=== PATIENT | female | born 1940 | race Caucasian/White ===

== ENCOUNTER → 2020-11-10 12:40 | Outpatient (BNVA) | payer MEDICARE, SELFPAY | PROVIDERS: PCP Family Medicine; Visit Provider Surgery Vascular Surgery | DX: I73.9 Peripheral vascular disease, unspecified (principal); I10 Essential (primary) hypertension; I83.218 Varicose veins of right lower extremity with both ulcer of other part of lower extremity and inflammation; I83.228 Varicose veins of left lower extremity with both ulcer of other part of lower extremity and inflammation; L97.529 Non-pressure chronic ulcer of other part of left foot with unspecified severity | CPT/HCPCS: 99202 ==

== ENCOUNTER 2020-11-18 15:02 | Outpatient (REF) | payer MEDICARE, SELFPAY ==
--- NOTE | ~2020-11-18 | US_ITS ---
EXAMINATION: NONINVASIVE ASSESSMENT OF THE ARTERIES OF BOTH LOWER EXTREMITIES WITH ANKLE PRESSURE MEASUREMENTS, ANKLE BRACHIAL INDICES, PVR MEASUREMENTS AND BILATERAL LOWER EXTREMITY DUPLEX. CLINICAL INFORMATION: Peripheral vascular disease TECHNIQUE: Ankle pressure measurements, ankle brachial indices and PVR tracings were obtained of the lower extremity arterial system bilaterally. In addition, duplex Doppler techniques with wave form analysis and measurement of velocities in the common femoral, profunda femoral, superficial femoral, popliteal, tibial arteries and peroneal arteries was performed. The study was performed only at rest. COMPARISON: None FINDINGS: NONINVASIVE ASSESSMENT OF THE ARTERIES OF BOTH LOWER EXTREMITIES WITH ABIs: RIGHT LEG: Right ankle-brachial index: 1.23 (dorsalis pedis pulse not audible by Doppler) PVR (ankle): Irregular waveform LEFT LEG: Ankle-brachial index: Unable to be obtained as pedal pulses were not audible by Doppler. PVR (ankle): Irregular waveform RIGHT LEG: Common femoral artery: 90.5 cm/s, biphasic Profunda femoris artery: 68 cm/s, Triphasic Superficial femoral artery (proximal): 60.1 cm/s, biphasic Superficial femoral artery (mid): 93.3 cm/s, biphasic Superficial femoral artery (distal): 68 cm/s, biphasic Popliteal artery: 51 cm/s, Triphasic Posterior tibial artery: 29.7 cm/s, monophasic Peroneal artery: 29.9 cm/s, monophasic LEFT LEG: Common femoral artery: 70.6 cm/s, Triphasic Profunda femoris artery: 60.4 cm/s, Triphasic Superficial femoral artery (proximal): 61.5 cm/s, biphasic Superficial femoral artery (mid): 63.3 cm/s, monophasic Superficial femoral artery (distal): 54.3 cm/s, monophasic Popliteal artery: 61.3 cm/s, monophasic Posterior tibial artery: 45.2 cm/s, monophasic Peroneal artery: Occluded US/US arterial duplex LE BI IMPRESSION: Right: AGUSTIN 1.23. No evidence of hemodynamically significant stenosis involving the right lower extremity by Doppler criteria. Left: AGUSTIN unable to be obtained. No evidence of hemodynamically significant stenosis involving the left lower extremity. No Doppler signal within the left peroneal artery consistent with occlusion.
== END 2020-11-18 15:03 | disposition home or self-care (01) ==
LOC: HO.US 15:02
PROVIDERS: Visit Provider Surgery Vascular Surgery
DX: I70.213 Atherosclerosis of native arteries of extremities with intermittent claudication, bilateral legs (principal)
CPT/HCPCS: 93925

== ENCOUNTER → 2020-11-22 10:40 | Outpatient (BNVA) | payer MEDICARE, SELFPAY | PROVIDERS: PCP Family Medicine; Visit Provider Surgery Vascular Surgery | DX: I73.9 Peripheral vascular disease, unspecified (principal) | CPT/HCPCS: 99212 ==

== ENCOUNTER → 2020-11-23 07:44 | Day surgery (SDC) | payer MEDICARE, MEDICAID, SELFPAY ==
[2020-11-23] VITALS (9 sets, daily range): BP systolic 127–163; BP diastolic 54–90; PULSE 75–92; RESP 16–24; TEMP 36.6; O2SAT 95–98; BMI 29.9
[2020-11-23] MEDS: 0.9 % Sodium Chloride 1,000 ML 100 ML IVCONT (08:29)
[2020-11-23 08:52] LABS: MANUAL DIFF FLAG NO
[2020-11-23 08:56] LABS: Basophils Absolute Auto 0.1 X10*3/uL (0.0-0.2); Basophils Percent Auto 0.5 % (0-2); Eosinophils Absolute Auto 0.3 X10*3/uL (0.0-0.4); Hemoglobin 11.8 g/dl (12.0-16.0); Imm Gran Abs Auto 0.05 X10*3/uL (0.00-0.03); Imm Gran Pct Auto 0.5 % (0.0-0.4); Lymphocytes Absolute Auto 1.6 X10*3/uL (1.2-4.9); Mean Corpuscular HGB Conc 31.9 g/dl (31.0-35.0); Mean Corpuscular Hemoglobin 31.1 pg (27.0-33.0); Mean Corpuscular Volume 97.4 fL (80-98); Mean Platelet Volume 9.9 fL (9.4-12.3); Monocytes Absolute Auto 0.9 X10*3/uL (0.1-1.2); Monocytes Percent Auto 8.9 % (2-11); Neutrophils Absolute Auto 6.7 X10*3/uL (2.0-8.3); Neutrophils Percent Auto 70.1 % (45-73); Platelet Count 292 X10*3/uL (160-400); Red Cell Distribution Width 15.8 % (11.0-16.0); White Blood Count 9.6 X10*3/uL (4.8-10.8)
[2020-11-23 08:59] LABS: Prothrombin Time 11.3 SEC (9.9-13.0)
[2020-11-23 09:26] LABS: Anion Gap 14 (12-20); Blood Urea Nitrogen 32 mg/dL (9-16); Calcium 9.1 mg/dL (8.4-10.2); Carbon Dioxide 24 mmol/L (22-29); Chloride 107 mmol/L (96-108); Estimated Glomerular Filt Rate 53; Glucose Random 99 mg/dL (60-115); Sodium 140 mmol/L (135-145)
--- NOTE | 2020-11-23 12:04 | P.OP_ITS ---
Operative Note Operative Note Date of Service: 11/23/20 Narrative: Angiogram report from [facility] Preoperative diagnosis: Atherosclerosis of left lower extremity with nonhealing ulcer Postoperative diagnosis: Same Procedure: 1. Ultrasound-guided right common femoral access 2. Aortogram with left lower extremity runoff 3. Atherectomy and stent placement of left SFA Surgeon:Shan Hunt M.D. Pyrotechnics Press Tender:None Anesthesia: Local with moderate conscious sedation for a total of 60 minutes, performed by pa Specimens:none Drains:none Estimated blood loss: Less than 10 ml Indications: 80-year-old female with nonhealing left great toe ulcer and heel ulceration had noninvasive arterial testing demonstrated significant SFA disease now for endovascular intervention The patient has signed the informed consent after reviewing risks, complications, benefits, and alternatives previously discussed with the patient in my office. The patient was given the opportunity to ask any additional questions or voice any concerns. All questions were answered to the patient's satisfaction. Procedure in detail: Patient was brought to the angiography suite prior to which a time-out was called for patient identification and site verification. Bilateral groins were prepped and draped in the standard surgical fashion. Under ultrasound guidance right common femoral was punctured with micro puncture needle and wire. Subsequently a precision 4 [place] sheath was then placed. FlexyMind wire was advanced to the level of the aorta. 4 [place] Flush catheter was brought up and parked at the level of the renal arteries. Aortogram was then undertaken. Catheter was brought down to the level of the iliac bifurcation. Iliacs were subsequently imaged. Catheter was then brought in up and over to the left side SFA. Runoff study was then undertaken. It was discovered that the mid to distal SFA had significant occlusive disease. At this time 4000 units of systemic heparin was administered. After 5 minutes of circulation time up and over 6 [place] sheath was then placed. Glidewire Advantage was used to traverse this lesion. This was done with a now B Cross catheter. We confirmed true lumen with contrast. Once this was accomplished we then brought in a spider wire. Hawk 1 atherectomy device was then used to atherectomy my as the distal SFA proximal popliteal and a lesion that was near Meliton's canal. Multiple unidirectional passes is was undertaken. Once this was done there was still some residual stenosis at the distal SFA and we were able to plasty this with a 6 x 40 regular balloon. Then a 6 x 40 drug coated balloon was brought into position and under 3 minutes and plasty for a total of 3 minutes in duration. Once this was all done there was some extravasation of contrast noted. A 6 x 20 regular stent was then placed. Extravasation resolved. Catheter wire sheath was then brought back to the ipsilateral side. StarClose closure device was deployed. Patient tolerated the procedure well returned to recovery with stable vitals. Interpretation of films: 1. Ultrasound demonstrates appropriate femoral puncture. Image of which was saved. 2. Aortogram demonstrates appropriate caliber aorta. Minimal disease. Appropriate take-off of the renals. 3. Iliac images demonstrate significant tortuosity of iliacs 4. Left side demonstrated good flow through the profunda 9 common femoral mid to distal SFA had a small total occlusion distal SFA proximal popliteal had a 2nd total occlusion. Below-knee vessels anterior tibial and peroneal where the main runoffs posterior tibial was totally occluded. 5. Completion angiogram demonstrated excellent flow through the SFA down into the popliteal anterior tibial and peroneal arteries. Conclusion: 1. Successful atherectomy and stent placement of left distal SFA. Due to the use of a drug coated balloon as well a total of 6 months of aspirin and Plavix will be required. This note is constructed using voice recognition software. While every effort has been made to ensure accuracy, meter shop superintendent errors may have been included. Thank you for allowing me to participate in the care of your patient. Yours sincerely, Shan Hunt MD, FACS, R.P.V.I.
[2020-11-23] MEDS: Clopidogrel Bisulfate 300 MG TABLET PO (12:14)
[2020-11-23] MEDS: iohexoL 300 MG/ML 100 ML INFUS..BTL 200 ML IV (12:31)
== END | disposition home or self-care (01) ==
PROVIDERS: PCP Nurse Practitioner Family; Visit Provider Surgery Vascular Surgery
DX: I70.244 Atherosclerosis of native arteries of left leg with ulceration of heel and midfoot (principal); L97.429 Non-pressure chronic ulcer of left heel and midfoot with unspecified severity; I70.245 Atherosclerosis of native arteries of left leg with ulceration of other part of foot; L97.529 Non-pressure chronic ulcer of other part of left foot with unspecified severity
CPT/HCPCS: 36415; 37227; 76937; 80048; 85025; 85610; 85730; 99152; 99153; C1714; C1725; C1760; C1769; C1876; C1884; C1887; J2250; J3010; Q9967

== ENCOUNTER → 2020-12-08 10:54 | Outpatient (BNVA) | payer MEDICARE, MEDICAID, SELFPAY | PROVIDERS: PCP Nurse Practitioner Family; Visit Provider Surgery Vascular Surgery | DX: I73.9 Peripheral vascular disease, unspecified (principal) | CPT/HCPCS: 99212 ==

== ENCOUNTER → 2020-12-22 11:00 | Outpatient (BNVA) | payer MEDICARE, MEDICAID, SELFPAY | PROVIDERS: PCP Nurse Practitioner Family; Visit Provider Surgery Vascular Surgery | DX: I73.9 Peripheral vascular disease, unspecified (principal); L97.529 Non-pressure chronic ulcer of other part of left foot with unspecified severity | CPT/HCPCS: 99212 ==

== ENCOUNTER → 2021-01-24 10:18 | Outpatient (BNVA) | payer MEDICARE, MEDICAID, SELFPAY | PROVIDERS: PCP Nurse Practitioner Family; Referring Provider Nurse Practitioner Family; Visit Provider Surgery Vascular Surgery | DX: I73.9 Peripheral vascular disease, unspecified (principal); I83.10 Varicose veins of unspecified lower extremity with inflammation | CPT/HCPCS: 99212 ==

== ENCOUNTER 2021-02-09 13:42 | Outpatient (REF) | payer MEDICARE, MEDICAID, SELFPAY ==
--- NOTE | ~2021-02-09 | US_ITS ---
EXAMINATION: NON-INVASIVE ASSESSMENT OF THE ARTERIES OF BOTH LOWER EXTREMITIES WITH ANKLE PRESSURE MEASUREMENTS, ANKLE BRACHIAL INDICES, PVR MEASUREMENTS AND BILATERAL LOWER EXTREMITY DUPLEX. CLINICAL INFORMATION: Peripheral vascular disease. TECHNIQUE: Ankle pressure measurements, ankle brachial indices and PVR tracings were obtained of the lower extremity arterial system bilaterally. In addition, duplex Doppler techniques with wave form analysis and measurement of velocities in the common femoral, profunda femoral, superficial femoral, popliteal and tibial arteries was performed. The study was performed only at rest. COMPARISON: November 18, 2020. FINDINGS: NON-INVASIVE ASSESSMENT OF THE ARTERIES OF BOTH LOWER EXTREMITIES WITH ABIs: RIGHT LEG: Right ankle-brachial index: 1.26 Pressures (mmHg): Posterior tibial: 206 Dorsalis pedis 204 PVR (ankle): Dampened LEFT LEG: Ankle-brachial index: 1.23 Pressures (mmHg) Posterior tibial: 201 Dorsalis pedis 201 PVR (ankle): Dampened BILATERAL LOWER EXTREMITY DUPLEX ULTRASOUND: RIGHT LEG: Common femoral artery: 99 cm/s, Diastolic flow reversal: Yes Profunda femoris artery: 89 cm/s, Diastolic flow reversal: Yes Superficial femoral artery (proximal): 92 cm/s, Diastolic flow reversal: Yes Superficial femoral artery (mid): 83 cm/s, Diastolic flow reversal: Yes Superficial femoral artery (distal): 93 cm/s, Diastolic flow reversal: Yes Popliteal artery: 38 cm/s, Diastolic flow reversal: Yes Posterior tibial artery: 45 cm/s, Diastolic flow reversal: Yes Peroneal artery: 44.3 cm/s LEFT LEG: Common femoral artery: 86 cm/s, Diastolic flow reversal: Yes Profunda femoris artery: 99 cm/s, Diastolic flow reversal: Yes Superficial femoral artery (proximal): 107 cm/s, Diastolic flow reversal: Yes Superficial femoral artery (mid): 94 cm/s, Diastolic flow reversal: Yes Superficial femoral artery (distal): 99 cm/s, Diastolic flow reversal: Yes Popliteal artery: 75 cm/s, Diastolic flow reversal: Yes Posterior tibial artery: 12 cm/s, Diastolic flow reversal: Yes Peroneal artery: Occluded US/US arterial duplex LE BI IMPRESSION: RIGHT LEG: AGUSTIN 1.26. No evidence of hemodynamically significant outflow stenosis on duplex examination. LEFT LEG: AGUSTIN 1.23. No evidence of hemodynamically significant outflow stenosis on duplex examination. Persistent occlusion of the left peroneal artery. AGUSTIN Reference: - >0.97-1.25 = normal - no significant arterial disease - 0.75-0.96 = mild peripheral arterial disease - 0.5-0.74 = moderate peripheral arterial disease - <0.50 = severe peripheral arterial disease
== END 2021-02-09 13:43 | disposition home or self-care (01) ==
LOC: HO.US 13:42
PROVIDERS: PCP Nurse Practitioner Family; Visit Provider Surgery Vascular Surgery
DX: I73.9 Peripheral vascular disease, unspecified (principal)
CPT/HCPCS: 93925

== ENCOUNTER → 2021-02-23 11:02 | Outpatient (BNVA) | payer MEDICARE, MEDICAID, SELFPAY | PROVIDERS: PCP Nurse Practitioner Family; Visit Provider Surgery Vascular Surgery | DX: I73.9 Peripheral vascular disease, unspecified (principal) | CPT/HCPCS: 99212 ==

== ENCOUNTER 2021-08-22 12:00 | Outpatient (REF) | payer MEDICARE, MEDICAID, SELFPAY ==
--- NOTE | ~2021-08-22 | US_ITS ---
EXAMINATION: COLOR-FLOW DUPLEX IMAGING OF THE BILATERAL LOWER EXTREMITY ARTERIAL SYSTEM. VELOCITY MEASUREMENTS THROUGHOUT THE FEMORAL ARTERIES WITH ANKLE-BRACHIAL PERIPHERAL ARTERIAL TESTING. Interventional Radiologist: Juan Pablo Oneal M.D., F.S.I.R., F.A.C.R. CLINICAL INFORMATION: This is an 81-year-old female with peripheral arterial disease. History of angioplasty and stent on the left. RIGHT FEMORAL RUNOFF VELOCITIES: The right common femoral artery measures 99 cm/s and triphasic. The right profunda femoral artery is 77 cm/s and is biphasic. Right proximal superficial femoral artery measures 160 cm/s and triphasic. Mid superficial femoral artery is 90 cm/s and triphasic. Distal right superficial femoral artery measures 60 cm/s and is biphasic. Right popliteal velocity measures 79 cm/s and is biphasic. The posterior tibial artery velocity measures 106 cm/s and was biphasic. The right ankle-brachial index is 1.18. LEFT FEMORAL RUNOFF VELOCITIES: The left common femoral artery measures 77 cm/s and biphasic. The left profunda femoral artery was not obtained. Left proximal superficial femoral artery measures 248 cm/s and monophasic. There is a stent in the mid and distal superficial femoral artery. The stent velocities are below. Left popliteal velocity measures 59 cm/s and is biphasic. The posterior tibial artery velocity measures 19 cm/s and was monophasic. The left ankle-brachial index is 1.20. STENT VELOCITIES: [place] artery proximal to the stent: 239 cm/s and triphasic. Proximal stent: 80 cm/s and biphasic. Mid stent: 77 cm/s and triphasic. Distal stent: 68 cm/s and triphasic. [place] artery distal to the stent: 41 cm/s and biphasic. US/US AGUSTIN complete IMPRESSION: 1. There are normal bilateral ankle-brachial indices. 2. There is atherosclerotic plaque with elevated velocities in the proximal left superficial femoral artery and in the [place] artery proximal to the stent. This may represent developing hemodynamically significant stenosis proximal to the stent. No significant stenosis is seen within the stent itself.
--- NOTE | ~2021-08-22 | US_ITS ---
EXAMINATION: COLOR-FLOW DUPLEX IMAGING OF THE BILATERAL LOWER EXTREMITY ARTERIAL SYSTEM. VELOCITY MEASUREMENTS THROUGHOUT THE FEMORAL ARTERIES WITH ANKLE-BRACHIAL PERIPHERAL ARTERIAL TESTING. Interventional Radiologist: Juan Pablo Oneal M.D., F.S.I.R., F.A.C.R. CLINICAL INFORMATION: This is an 81-year-old female with peripheral arterial disease. History of angioplasty and stent on the left. RIGHT FEMORAL RUNOFF VELOCITIES: The right common femoral artery measures 99 cm/s and triphasic. The right profunda femoral artery is 77 cm/s and is biphasic. Right proximal superficial femoral artery measures 160 cm/s and triphasic. Mid superficial femoral artery is 90 cm/s and triphasic. Distal right superficial femoral artery measures 60 cm/s and is biphasic. Right popliteal velocity measures 79 cm/s and is biphasic. The posterior tibial artery velocity measures 106 cm/s and was biphasic. The right ankle-brachial index is 1.18. LEFT FEMORAL RUNOFF VELOCITIES: The left common femoral artery measures 77 cm/s and biphasic. The left profunda femoral artery was not obtained. Left proximal superficial femoral artery measures 248 cm/s and monophasic. There is a stent in the mid and distal superficial femoral artery. The stent velocities are below. Left popliteal velocity measures 59 cm/s and is biphasic. The posterior tibial artery velocity measures 19 cm/s and was monophasic. The left ankle-brachial index is 1.20. STENT VELOCITIES: [place] artery proximal to the stent: 239 cm/s and triphasic. Proximal stent: 80 cm/s and biphasic. Mid stent: 77 cm/s and triphasic. Distal stent: 68 cm/s and triphasic. [place] artery distal to the stent: 41 cm/s and biphasic. US/US arterial duplex LE BI IMPRESSION: 1. There are normal bilateral ankle-brachial indices. 2. There is atherosclerotic plaque with elevated velocities in the proximal left superficial femoral artery and in the [place] artery proximal to the stent. This may represent developing hemodynamically significant stenosis proximal to the stent. No significant stenosis is seen within the stent itself.
== END 2021-08-22 12:01 | disposition home or self-care (01) ==
LOC: HO.US 12:00
PROVIDERS: Visit Provider Surgery Vascular Surgery
DX: I73.9 Peripheral vascular disease, unspecified (principal)
CPT/HCPCS: 93923; 93925

== ENCOUNTER → 2021-09-19 09:54 | Outpatient (BNVA) | payer MEDICARE, MEDICAID, SELFPAY | PROVIDERS: PCP Family Medicine; Visit Provider Surgery Vascular Surgery | DX: I73.9 Peripheral vascular disease, unspecified (principal) | CPT/HCPCS: 99212 ==

== ENCOUNTER 2022-09-17 10:54 | Outpatient (REF) | payer MEDICARE, MEDICAID, SELFPAY ==
--- NOTE | ~2022-09-17 | US_ITS ---
EXAMINATION: ANKLE-BRACHIAL INDICES SINGLE LEVEL PULSE VOLUME RECORDING ARTERIAL DUPLEX BILATERAL LEGS CLINICAL INFORMATION: Peripheral vascular disease. Peripheral vascular disease. COMPARISON: 08/22/2021. TECHNIQUE: Ankle-brachial indices and PVR at the ankle were obtained. Duplex Doppler of the bilateral lower extremity arterial systems was performed. FINDINGS: RIGHT: Ankle-brachial index: 1.11 (Segmental pressures greater than 200 indicating calcified disease and the AGUSTIN is likely unreliable). PVR: Abnormal. Common femoral: PSV 108 cm/s. Triphasic waveform. Deep femoral: PSV 115 cm/s. Abnormal triphasic waveform. Proximal superficial femoral: PSV 145 cm/s. Abnormal triphasic waveform. Mid superficial femoral: PSV 67 cm/s. Abnormal biphasic waveform. Distal superficial femoral: PSV 72 cm/s. Abnormal biphasic waveform. Popliteal: PSV 53 cm/s. Monophasic waveform. Posterior tibial: PSV 21 cm/s. Monophasic waveform. Peroneal: Not visible. LEFT: Ankle-brachial index: 1.11 (Segmental pressures greater than 200 indicating calcified disease in the AGUSTIN is likely unreliable). PVR: Abnormal. Common femoral: PSV 94 cm/s. Triphasic waveform. Deep femoral: PSV 53 cm/s. Monophasic waveform. [place] artery proximal to SFA stent: PSV 114 cm/s. Biphasic waveform. Proximal SFA stent: PSV 196 cm/s. Triphasic waveform. Mid SFA stent: PSV 94 cm/s. Biphasic waveform. Distal SFA stent: PSV 77 cm/s. Biphasic waveform. Negative artery distal to stent: PSV 69 cm/s. Biphasic waveform. Popliteal: PSV 48 cm/s. Biphasic waveform. Posterior tibial: PSV 37 cm/s. Monophasic waveform. Peroneal: Not visible. US/US AGUSTIN complete IMPRESSION: Right: Nondiagnostic AGUSTIN due to pressures greater than 200. Abnormal PVR. Diffuse atherosclerosis with likely significant femoropopliteal and tibial level disease. Left: Nondiagnostic AGUSTIN due to pressures greater than 200. Abnormal PVR. Diffuse atherosclerosis. SFA stent is patent. Likely significant tibial level disease.
--- NOTE | ~2022-09-17 | US_ITS ---
EXAMINATION: ANKLE-BRACHIAL INDICES SINGLE LEVEL PULSE VOLUME RECORDING ARTERIAL DUPLEX BILATERAL LEGS CLINICAL INFORMATION: Peripheral vascular disease. Peripheral vascular disease. COMPARISON: 08/22/2021. TECHNIQUE: Ankle-brachial indices and PVR at the ankle were obtained. Duplex Doppler of the bilateral lower extremity arterial systems was performed. FINDINGS: RIGHT: Ankle-brachial index: 1.11 (Segmental pressures greater than 200 indicating calcified disease and the AGUSTIN is likely unreliable). PVR: Abnormal. Common femoral: PSV 108 cm/s. Triphasic waveform. Deep femoral: PSV 115 cm/s. Abnormal triphasic waveform. Proximal superficial femoral: PSV 145 cm/s. Abnormal triphasic waveform. Mid superficial femoral: PSV 67 cm/s. Abnormal biphasic waveform. Distal superficial femoral: PSV 72 cm/s. Abnormal biphasic waveform. Popliteal: PSV 53 cm/s. Monophasic waveform. Posterior tibial: PSV 21 cm/s. Monophasic waveform. Peroneal: Not visible. LEFT: Ankle-brachial index: 1.11 (Segmental pressures greater than 200 indicating calcified disease in the AGUSTIN is likely unreliable). PVR: Abnormal. Common femoral: PSV 94 cm/s. Triphasic waveform. Deep femoral: PSV 53 cm/s. Monophasic waveform. [place] artery proximal to SFA stent: PSV 114 cm/s. Biphasic waveform. Proximal SFA stent: PSV 196 cm/s. Triphasic waveform. Mid SFA stent: PSV 94 cm/s. Biphasic waveform. Distal SFA stent: PSV 77 cm/s. Biphasic waveform. Negative artery distal to stent: PSV 69 cm/s. Biphasic waveform. Popliteal: PSV 48 cm/s. Biphasic waveform. Posterior tibial: PSV 37 cm/s. Monophasic waveform. Peroneal: Not visible. US/US arterial duplex LE BI IMPRESSION: Right: Nondiagnostic AGUSTIN due to pressures greater than 200. Abnormal PVR. Diffuse atherosclerosis with likely significant femoropopliteal and tibial level disease. Left: Nondiagnostic AGUSTIN due to pressures greater than 200. Abnormal PVR. Diffuse atherosclerosis. SFA stent is patent. Likely significant tibial level disease.
== END 2022-09-17 10:55 | disposition home or self-care (01) ==
LOC: HO.US 10:54
PROVIDERS: Visit Provider Surgery Vascular Surgery
DX: I70.213 Atherosclerosis of native arteries of extremities with intermittent claudication, bilateral legs (principal)
CPT/HCPCS: 93923; 93925

== ENCOUNTER → 2022-10-23 09:47 | Outpatient (BNVA) | payer MEDICARE, MEDICAID, SELFPAY | PROVIDERS: PCP Family Medicine; Visit Provider Surgery Vascular Surgery | DX: I73.9 Peripheral vascular disease, unspecified (principal) | CPT/HCPCS: 99212 ==

== ENCOUNTER 2023-06-09 02:40 | Inpatient (IN) | payer MEDICARE, MEDICAID, SELFPAY ==
[2023-06-09] VITALS (11 sets, daily range): BP systolic 118–149; BP diastolic 56–72; PULSE 70–101; RESP 13–24; TEMP 35.9–37; O2SAT 88–98; BMI 23.7; BMI 22.3
--- NOTE | 2023-06-09 | ECG_ITS ---
Test Reason : CHEST PAIN Blood Pressure : / mmHG Vent. Rate : 080 BPM Atrial Rate : 080 BPM P-R Int : 212 ms QRS Dur : 120 ms QT Int : 476 ms P-R-T Axes : 041 -48 087 degrees QTc Int : 548 ms Sinus rhythm with 1st degree A-V block Left axis deviation Minimal voltage criteria for LVH, may be normal variant ( Remigio product ) Anterolateral infarct , age undetermined Abnormal ECG No previous ECGs available Referred By: Generic ED Physician Electronically Signed By:ARIANNE MERCADO MD
--- NOTE | 2023-06-09 | ECG_ITS ---
Test Reason : CHEST PAIN Blood Pressure : / mmHG Vent. Rate : 079 BPM Atrial Rate : 079 BPM P-R Int : 214 ms QRS Dur : 122 ms QT Int : 468 ms P-R-T Axes : 047 -57 126 degrees QTc Int : 536 ms Sinus rhythm with 1st degree A-V block Left axis deviation Non-specific intra-ventricular conduction delay Minimal voltage criteria for LVH, may be normal variant ( [place] product ) ST & T wave abnormality, consider lateral ischemia Abnormal ECG When compared with ECG of 09-JUN-2023 02:50, No significant change was found Referred By: Jhonatan Sebastian Electronically Signed By:WILLIAM VALENTIN
--- NOTE | ~2023-06-09 | XR_ITS ---
EXAMINATION: XR CHEST CLINICAL INFORMATION: Pain, dyspnea, cough COMPARISON: None available. TECHNIQUE: Frontal view of the chest was obtained. FINDINGS: There is elevation of the right hemidiaphragm, likely with adjacent basilar atelectasis. No additional consolidation is seen bilaterally. Biapical scarring is noted. No appreciable pneumothorax or significant pleural effusion. No overt pulmonary edema. Cardiac silhouette appears near the upper limits of normal in size. Calcification is present at the aortic arch. Degenerative changes are noted in the spine. XR/XR chest 1V IMPRESSION: Elevated right hemidiaphragm, likely with adjacent basilar atelectasis. No additional acute findings identified.
--- NOTE | ~2023-06-09 | CT_ITS ---
EXAMINATION: CT ANGIOGRAM OF THE CHEST WITH AND WITHOUT CONTRAST (CT PULMONARY ANGIOGRAM FOR PE) CLINICAL INFORMATION: Reason for Exam hypoxia, dyspnea, chest pain COMPARISON: Chest x-ray from the same day TECHNIQUE: Prior to contrast administration, noncontrast localization images were obtained. Subsequently, multidetector volumetric imaging was performed from the thoracic inlet to below the diaphragms following the administration of 65 mL Omnipaque 350 intravenous contrast. No contrast reaction reported Sagittal, coronal, and MIP oblique sagittal reformatted images were obtained on the CT workstation, uploaded to PACS, and reviewed. This CT examination was performed using dose optimization techniques as appropriate, variously including the following: *Automated exposure control *Adjustment of mA and/or kV according to patient size (this includes techniques or standardized protocols for targeted exams where dose is matched to indication/reason for exam; i.e. extremities or head) *Use of iterative reconstruction technique Total exam dose-length product 269 mGy-cm FINDINGS: QUALITY OF STUDY/CONTRAST BOLUS: Satisfactory. PULMONARY ARTERIES: No filling defects are seen in the main, lobar, or segmental pulmonary arteries to suggest the presence of pulmonary emboli. THORACIC AORTA: No aneurysm. There is atherosclerotic calcification along the aorta. LUNG: Biapical scarring is present. There is a mosaic attenuation throughout the lung parenchyma which may represent heterogeneous air trapping. Regions of atelectasis are present in the right middle and lower lobes. PLEURA: No pneumothorax. Trace right pleural effusion. MEDIASTINUM: Thyroid gland is grossly unremarkable. Mildly prominent subcentimeter subcarinal lymph node, nonspecific. There is cardiomegaly without pericardial effusion. No evidence of septal bowing or right heart strain. CORONARY ARTERY CALCIFICATION: Present CHEST WALL/AXILLA: No axillary or internal mammary lymphadenopathy. OSSEOUS STRUCTURES: Degenerative changes are noted in the spine. UPPER ABDOMEN: A 1.1 cm hyperdensity in the upper left kidney is suggestive of a hyperdense cyst. No reflux of contrast into the hepatic veins to suggest elevated right heart pressures. CT/CT angio chest PE protocol IMPRESSION: 1. No pulmonary embolus identified. 2. Trace right pleural effusion. Right basilar atelectasis. 3. Mosaic attenuation throughout the lung parenchyma, which may represent heterogeneous air trapping. 4. Cardiomegaly. 5. Probably prominent subcarinal lymph node, nonspecific. 6. Small hyperdensity in the upper left kidney may reflect a hyperdense cyst. Correlation with nonemergent renal ultrasound is recommended. VTE: negative.
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
[2023-06-09 03:26] LABS: Basophils Absolute Auto 0.1 X10*3/uL (0.0-0.2); Basophils Percent Auto 0.5 % (0-2); Eosinophils Absolute Auto 0.2 X10*3/uL (0.0-0.4); Eosinophils Percent Auto 2.1 % (0-4); Hemoglobin 10.7 g/dl (12.0-16.0); Imm Gran Abs Auto 0.07 X10*3/uL (0.00-0.03); Imm Gran Pct Auto 0.7 % (0.0-0.4); Lymphocytes Absolute Auto 1.7 X10*3/uL (1.2-4.9); Lymphocytes Percent Auto 16.7 % (20-40); MANUAL DIFF FLAG NO; Mean Corpuscular HGB Conc 32.4 g/dl (31.0-35.0); Mean Corpuscular Hemoglobin 32.7 pg (27.0-33.0); Mean Corpuscular Volume 100.9 fL (80.0-98.0); Mean Platelet Volume 9.2 fL (9.4-12.3); Monocytes Absolute Auto 0.6 X10*3/uL (0.1-1.2); Monocytes Percent Auto 6.3 % (2-11); Neutrophils Absolute Auto 7.3 x10*3/uL (2.0-8.3); Neutrophils Percent Auto 73.7 % (45-73); Platelet Count 337 X10*3/uL (160-400); Red Blood Count 3.27 X10*6/uL (4.20-5.50); Red Cell Distribution Width 13.8 % (11.0-16.0); White Blood Count 9.9 X10*3/uL (4.8-10.8)
[2023-06-09 03:34] LABS: Prothrombin Time 11.8 SEC (11.1-13.3)
[2023-06-09 03:40] LABS: COVID-19 Test Negative (Negative); IDNOW Serial# 152EDE1D
[2023-06-09 03:42] LABS: Alanine Aminotransferase 6 U/L (0-31); Albumin Level 3.4 g/dL (3.5-5.0); Alkaline Phosphatase 78 U/L (39-117); Anion Gap 14 (12-20); Aspartate Amino Transferase 13 U/L (5-31); Bilirubin Direct < 0.2 mg/dL (0.0-0.5); Bilirubin Total 0.2 mg/dL (0.0-1.0); Blood Urea Nitrogen 20 mg/dL (9-16); Calcium 9.2 mg/dL (8.4-10.2); Carbon Dioxide 23 mmol/L (22-29); Chloride 108 mmol/L (96-108); Estimated Glomerular Filt Rate > 60; Glucose Random 103 mg/dL (60-115); Potassium 4.1 mmol/L (3.3-5.1); Sodium 141 mmol/L (135-145); Total Protein 7.1 g/dL (6.5-8.0)
[2023-06-09 03:46] LABS: B Type Natriuretic Peptide 585 pg/mL (<100)
[2023-06-09 03:53] LABS: Troponin-I High Sensitivity 85.7 ng/L (<3.5-17.0)
[2023-06-09 04:12] LABS: D Dimer High Sensitivity 443 NG/ML
[2023-06-09] MEDS: iohexoL 350 MG/ML 100 ML INFUS..BTL 65 ML IV (05:57)
[2023-06-09 06:04] LABS: Troponin-I High Sensitivity 101.4 ng/L (<3.5-17.0)
[2023-06-09] MEDS: Furosemide 20 MG/2 ML VIAL IVPUSH (07:01)
[2023-06-09] MEDS: Aspirin Enteric Coated 81 MG TABLET.DR PO (07:01)
--- NOTE | 2023-06-09 07:27 | PC.NURSE ---
assumed care of pt at 0700. pt a&o x3, with some confusion at times. pt medicated per jul, repositioned in bed, and purewick put in place. pt resting quietly in bed, in no apparent distress, vss. rr even/unlabored. denies pain debo. on 2L O2 sating 99%. call burks within pt reach. awaiting admit orders. plan of care ongoing.
--- NOTE | 2023-06-09 07:44 | PM.IMHP ---
History of Present Illness Date of Service: 06/09/23 Chief Complaint: Chest pain 83 year old female with HTN, PVD on plavix, CAD with prior NE no detail,who presented from [facility] with chest pain, she describes having mid chest and to some extent abdomina pain in the evening but is vague on details. The pain lasted briefly and resolved, there was no associteated sob. She has not had any further pain since coming to the ED. Work up has included elevated troponin i level of 85 and now 101, BNP of 585. No ECG TWI in I and AVL. She is presently pain free and hemodynamically stable. Given Aspirin and Lasix Review of Systems Review of Systems: Gen: no fever Resp: no sob, no cough CV: no chest, no AVELAR, no leg edema GI: No n/v, no abd pain Neuro: No confusion [facility] Medical History Myocardial infarction Hypertension Social History (Updated 06/09/23 @ 03:28 by Barbara Booker DO) Patient Tobacco Use Status: Never used Tobacco Smoked in Last 30 Days: No Use of substances other than those prescribed or required for medical reasons: No Advance Directives: No Advance Directives Information Provided: No Meds Allergies Allergy/AdvReac Type Severity Reaction Status Date / Time No Known Allergies Allergy Verified 10/23/22 09:56 Home Medications Medication Instructions Recorded Confirmed Last Taken Type aspirin 81 mg tablet,delayed 81 mg PO DAILY@0800 11/10/20 06/09/23 Unknown History release (Adult Aspirin Regimen) melatonin 5 mg capsule 5 mg PO DAILY@1800 11/10/20 06/09/23 Unknown History metoprolol tartrate 25 mg tablet 25 mg PO DAILY@199911/10/20 06/09/23 Unknown History tramadol 50 mg tablet 25 mg PO Q6H PRN Pain 12/22/20 06/09/23 Unknown History metoprolol tartrate 50 mg tablet 50 mg PO DAILY@0802/23/21 06/09/23 Unknown History escitalopram oxalate 5 mg tablet 7.5 mg PO DAILY@79910/23/22 06/09/23 Unknown History Lactobacillus rhamnosus GG 10 1 cap PO DAILY@79906/09/23 06/09/23 Unknown History billion cell-inulin 200 mg capsule (Visionarity) acetaminophen 500 mg tablet 1,000 mg PO TID 06/09/23 06/09/23 Unknown History clopidogrel 75 mg tablet (Plavix) 75 mg PO DAILY@0806/09/23 06/09/23 Unknown History estradiol 0.01% (0.1 mg/gram) 1 g vaginal MOWEFR 06/09/23 06/09/23 Unknown History vaginal cream (Estrace) guaifenesin 100 mg/5 mL oral liquid 200 mg PO Q4H PRN Cough 06/09/23 06/09/23 Unknown History levothyroxine 25 mcg tablet 25 mcg PO DAILY@0606/09/23 06/09/23 Unknown History magnesium oxide 400 mg (241.3 mg 400 mg PO DAILY@199906/09/23 06/09/23 Unknown History magnesium) tablet menthol 0.44 %-zinc oxide 20.6 % 1 appl topical DAILY PRN irritation 06/09/23 06/09/23 Unknown History topical ointment (Calmoseptine) Physical Exam Vital Signs and Narrative: Vital Signs: Last Vital Signs Temp 98.0 F 06/09/23 05:38 Pulse 81 06/09/23 07:03 Resp 15 06/09/23 07:03 BP 149/69 H 06/09/23 07:03 Pulse Ox 96 06/09/23 07:03 O2 Del Method Nasal Cannula 06/09/23 07:03 O2 Flow Rate 2 06/09/23 07:03 BMI result Body Mass Index 23.7 Constitutional: Alert, in no distress, overweight. Mental Status: Oriented to person, place and time. Eyes: Pupils are equal, round and reactive to light. Ear, Nose and Throat: Oropharynx clear, mucous membranes moist. Ears and nose without eformities. Trachea midline. Respiratory: Clear to auscultation. No wheezing, rales or rhonchi. Cardiovascular: S1 S2 regular. No murmurs, rubs or gallops. Gastrointestinal: Abdomen soft, non-tender, non-distended. Normal bowel sounds.? Neurologic: Cranial nerves II-XII grossly intact. No focal neurological deficits. Moves all extremities spontaneously.? Skin: No rashes or lesions.? Musculoskeletal: No cyanosis or clubbing. Psychiatric: Normal mood and affect? Results Labs 06/09/23 03:20 06/09/23 03:20 Labs: Laboratory Results - last 24 hr 06/09/23 03:20 MCV 100.9 H MCH 32.7 MCHC 32.4 RDW 13.8 Plt Count 337 MPV 9.2 L Immature Gran % (Auto) 0.7 H Neut % (Auto) 73.7 H Lymph % (Auto) 16.7 L [place] % (Auto) 6.3 Eos % (Auto) 2.1 Baso % (Auto) 0.5 Lymph # (Auto) 1.7 [place] # (Auto) 0.6 Eos # (Auto) 0.2 Baso # (Auto) 0.1 Abs Immat Gran (auto) 0.07 H Absolute Neuts (auto) 7.3 Absolute Nucleated RBC 0.000 Nucleated RBC % (auto) 0.0 PT 11.8 INR 1.0 D-Dimer High Sensitivty 443 Anion Gap 14 Estim Creat Clear Calc 40.0 Estimated GFR > 60 Random Glucose 103 Calcium 9.2 Magnesium 2.0 Total Bilirubin 0.2 Direct Bilirubin < 0.2 AST 13 ALT 6 Alkaline Phosphatase 78 B-Natriuretic Peptide 585 H Total Protein 7.1 Albumin 3.4 L COVID-19 ([facility]YA) Negative COVID-19 Clin Com See Note Imaging Radiologist's Impressions: Impressions Chest X-Ray 06/09/23 03:50 IMPRESSION: Elevated right hemidiaphragm, likely with adjacent basilar atelectasis. No additional acute findings identified. Chest CTA 06/09/23 06:02 IMPRESSION: 1. No pulmonary embolus identified. 2. Trace right pleural effusion. Right basilar atelectasis. 3. Mosaic attenuation throughout the lung parenchyma, which may represent heterogeneous air trapping. 4. Cardiomegaly. 5. Probably prominent subcarinal lymph node, nonspecific. 6. Small hyperdensity in the upper left kidney may reflect a hyperdense cyst. Correlation with nonemergent renal ultrasound is recommended. VTE: negative. Assessment and Plan (1) Elevated troponin: Status: Acute (2) Chest pain: Qualifiers: Chest pain type: precordial pain Qualified Code(s): R07.2 - Precordial pain Status: Acute Plan 83 year old with CAD, PAD here with chest pain NSTEMI NSTEMI -trop still rising -repeat trop and ECG -ASA, Plavxix, metoprolol, and statin -iv heparin for rising trop -Cardiology eval Elevated BNP--no sings of heart failure, got Lasix in ED, monitor HTN--resume metoprolol PAD--ASA, Plavix hypothyroidism--levothyroxine DVT P--heparin Full code at least 2 midnights admit for treatment of NSTEMI with iv heparin Quality Stroke Does the patient have a stroke diagnosis?: No VTE Prior VTE?: No VTE Risk Level:: Medical - moderate - high VTE Device Contraindication: Treatment Not Indicated VTE Drug Contraindication: N/A - Med Ordered
[2023-06-09] MEDS: Atorvastatin Calcium 80 MG TABLET PO (09:06)
--- NOTE | 2023-06-09 09:13 | PHA.MEDREC ---
Pharmacy Consult ? Medication Reconciliation Pharmacy has completed the medication reconciliation. used list from [facility].
[2023-06-09 10:05] LABS: Troponin-I High Sensitivity 117.7 ng/L (<3.5-17.0)
--- NOTE | 2023-06-09 10:07 | PC.NURSE ---
critical lab: troponin 117.[address] Romulo gregory.
[2023-06-09 11:25] LABS: Prothrombin Time 12.3 SEC (11.1-13.3)
[2023-06-09 11:28] LABS: PTT Heparin Drip 29.9 SEC (53-77.9)
[2023-06-09] MEDS: Levothyroxine Sodium 25 MCG TABLET PO (11:36)
[2023-06-09] MEDS: Heparin Sodium,Porcine 5,000 UNIT/ML VIAL 3100 UNIT IVPUSH (11:43)
[2023-06-09] MEDS: Heparin Sodium,Porcine/1/2NS 25,000 UNIT/250 ML IV.SOLN 6.22 UNIT IVCONT (11:44)
--- NOTE | 2023-06-09 11:45 | P.CONCA_ITS ---
History of Present Illness History of Present Illness Date of Service: 06/09/23 Requesting physician: Jhonatan Sebastian Consult reason: troponin elevation Chief complaint: NSTEMI Narrative: I was consulted to see Elisabeth in cardiology consultation today for elevated troponins. She is 83-year-old female who lives at a senior living because of inability to walk. Patient is in usual state of health and over the last couple days started developing chest pain which was precordial in nature and said there were 3 point discomfort, described as sharp pain lasting for few seconds. She would intermittent chest pain for greater than 24 hours and then was told by the nursing facility to be referred to the emergency room for further evaluation. EKG shows nonspecific changes. Her troponins are rising although on the low side. She has been admitted and is currently not on IV heparin the. She is on dual antiplatelet therapy for peripheral vascular disease. She had a cardiac event in 2004, as per the son-in-law was at bedside she had cardiac arrest and was revived. Not sure whether she had stents performed at that time patient is not a very good historian. Denies any orthopnea, PND, leg edema. No prolonged palpitations, lightheadedness, syncope. Review of Systems 2 Constitutional: Constitutional: Reports no additional constitutional complaints Eyes: Eyes: Reports no additional eye complaints Cardiovascular: Cardiovascular: Reports chest pain at rest, Denies leg edema, Denies lightheadedness, Denies Loss of Consciousness, Denies palpitations and Denies dyspnea Respiratory: Respiratory: Denies dyspnea Gastrointestinal: Gastrointestinal: Reports no additional gastrointestinal complaints Genitourinary: Genitourinary: Reports no additional female genitourinary complaints Musculoskeletal: Musculoskeletal: Reports no additional musculoskeletal complaints Integumentary/Breasts: Skin/Breast: Reports system reviewed and no additional complaints, except as docu Neurologic: Reports system reviewed and no additional complaints, except as documented Psychiatric: Psychiatric: Reports no additional psychiatric complaints Endocrine: Endocrine: Denies palpitations PMFSH Past Medical History Medical History Myocardial infarction Hypertension Social History Social History Patient Tobacco Use Status: Never used Tobacco Smoked in Last 30 Days: No Use of substances other than those prescribed or required for medical reasons: No Advance Directives: No Advance Directives Information Provided: No Meds Allergies Allergy/AdvReac Type Severity Reaction Status Date / Time No Known Allergies Allergy Verified 10/23/22 09:56 Active Medications: Current Medications Acetaminophen (Acetaminophen 325 Mg Tablet) 650 mg PO Q6H PRN PRN Reason: Pain, Mild (Pain Scale 1-3) Al Hydroxide/Mg Hydroxide (Magnesium Hydrox/Alum Hydrox 30 Ml Oral.Susp) 30 ml PO Q4H PRN PRN Reason: Heartburn/Nausea Aspirin (Aspirin Enteric Coated 81 Mg Tablet.Dr) 81 mg PO DAILY@0800 [facility] Clopidogrel Bisulfate (Clopidogrel Bisulfate 75 Mg Tablet) 75 mg PO DAILY@0800 [facility] Escitalopram Oxalate (Escitalopram Oxalate 5 Mg Tablet) 7.5 mg PO DAILY@0800 [facility] Guaifenesin (Guaifenesin 100 Mg/5 Ml Liquid) 5 ml PO Q4H PRN PRN Reason: Cough Heparin Sodium (Porcine) (Heparin Sodium,Porcine 5,000 Unit/Ml Vial) 2,100 unit 40 unit/kg (2100 unit) IVPUSH PROTOCOL BOLUS PRN; Protocol PRN Reason: 40 unit/kg - Heparin Protocol Heparin Sodium (Porcine) (Heparin Sodium,Porcine 5,000 Unit/Ml Vial) 4,100 unit 80 unit/kg (4100 unit) IVPUSH PROTOCOL BOLUS PRN; Protocol PRN Reason: 80 unit/kg - Heparin Protocol Heparin Sodium/Sodium Chloride (Heparin Sodium,Porcine/1/2ns) 25,000 unit in 250 mls @ 0 mls/hr IVCONT .Q0M [facility]; Protocol Levothyroxine Sodium (Levothyroxine Sodium 25 Mcg Tablet) 25 mcg PO DAILY@0600 [facility] Last Admin: 06/09/23 11:36 Dose: 25 mcg Magnesium Oxide (Magnesium Oxide 400 Mg Tablet) 400 mg PO DAILY@1999 [facility] Melatonin (Melatonin 3 Mg Tablet) 6 mg PO BEDTIME [facility] Metoprolol Tartrate (Metoprolol Tartrate 25 Mg Tablet) 25 mg PO DAILY@1999 [facility]; Protocol Metoprolol Tartrate (Metoprolol Tartrate 50 Mg Tablet) 50 mg PO DAILY@0800 [facility]; Protocol Nitroglycerin (Nitroglycerin 0.4 Mg Tab.Subl) 0.4 mg SUBLINGUAL Q5MX3 PRN PRN Reason: Chest Pain Ondansetron HCl (Ondansetron Hcl 4 Mg/2 Ml Vial) 4 mg IVPUSH Q8H PRN PRN Reason: Nausea and Vomiting Sodium Chloride (0.9 % Sodium Chloride Flush 3 Ml Syringe) 3 ml IVFLUSH QSHIFT [facility] Home Medications Medication Instructions Recorded Confirmed Last Taken Type aspirin 81 mg tablet,delayed 81 mg PO DAILY@0811/10/20 06/09/23 Unknown History release (Adult Aspirin Regimen) melatonin 5 mg capsule 5 mg PO DAILY@179911/10/20 06/09/23 Unknown History metoprolol tartrate 25 mg tablet 25 mg PO DAILY@199911/10/20 06/09/23 Unknown History tramadol 50 mg tablet 25 mg PO Q6H PRN Pain 12/22/20 06/09/23 Unknown History metoprolol tartrate 50 mg tablet 50 mg PO DAILY@79902/23/21 06/09/23 Unknown History escitalopram oxalate 5 mg tablet 7.5 mg PO DAILY@79910/23/22 06/09/23 Unknown History Lactobacillus rhamnosus GG 10 1 cap PO DAILY@79906/09/23 06/09/23 Unknown History billion cell-inulin 200 mg capsule ([facility] evOLED [facility]) acetaminophen 500 mg tablet 1,000 mg PO TID 06/09/23 06/09/23 Unknown History clopidogrel 75 mg tablet (Plavix) 75 mg PO DAILY@79906/09/23 06/09/23 Unknown History estradiol 0.01% (0.1 mg/gram) 1 g vaginal MOWEFR 06/09/23 06/09/23 Unknown History vaginal cream (Estrace) guaifenesin 100 mg/5 mL oral liquid 200 mg PO Q4H PRN Cough 06/09/23 06/09/23 Unknown History levothyroxine 25 mcg tablet 25 mcg PO DAILY@59906/09/23 06/09/23 Unknown History magnesium oxide 400 mg (241.3 mg 400 mg PO DAILY@199906/09/23 06/09/23 Unknown History magnesium) tablet menthol 0.44 %-zinc oxide 20.6 % 1 appl topical DAILY PRN irritation 06/09/23 06/09/23 Unknown History topical ointment (Calmoseptine) Physical Exam 2 Vital Signs: Vital Signs: Last Vital Signs Temp 97.9 F 06/09/23 08:00 Pulse 77 06/09/23 09:16 Resp 13 06/09/23 09:16 BP 135/58 L 06/09/23 09:16 Pulse Ox 97 06/09/23 09:16 O2 Del Method Nasal Cannula 06/09/23 09:16 O2 Flow Rate 1 06/09/23 09:16 BMI result Body Mass Index 22.3 Const: General: cooperative, comfortable, no acute distress, alert and awake Nutritional Appearance: thin and other (Frail elderly woman) O rientation/consciousness: patient oriented x3 HEENT: Head: Yes normocephalic and Yes atraumatic Neck: Neck: Yes trachea midline, Yes supple and Yes no JVD Resp: Effort & Inspection: normal respiratory effort and other (Marked dose was kyphoscoliosis) Auscultation: clear to auscultation bilaterally Cardio: Jugular venous distension: no JVD Palpation: normal PMI Rate: r egular rate Rhythm: regular rhythm Heart sounds: S1 normal heart sound present, S2 normal heart sound present, no click, no gallops, no murmurs and no rubs GI: Auscultation: normal bowel sounds Skin: General skin exam: no rashes or lesions noted Neuro: General: patient oriented x3 and no focal motor deficits Extrem: General: Yes no clubbing, cyanosis or edema Objective Labs and Meds 06/09/23 03:20 06/09/23 03:20 Lab results: Laboratory Results - last 24 hr 06/09/23 06/09/23 06/09/23 03:20 05:35 09:26 WBC 9.9 RBC 3.27 L Hgb 10.7 L Hct 33.0 L MCV 100.9 H MCH 32.7 MCHC 32.4 RDW 13.8 Plt Count 337 MPV 9.2 L Immature Gran % (Auto) 0.7 H Neut % (Auto) 73.7 H Lymph % (Auto) 16.7 L Haakon % (Auto) 6.3 Eos % (Auto) 2.1 Baso % (Auto) 0.5 Lymph # (Auto) 1.7 Haakon # (Auto) 0.6 Eos # (Auto) 0.2 Baso # (Auto) 0.1 Abs Immat Gran (auto) 0.07 H Absolute Neuts (auto) 7.3 Absolute Nucleated RBC 0.000 Nucleated RBC % (auto) 0.0 PT 11.8 INR 1.0 aPTT Heparin Protocol D-Dimer High Sensitivty 443 Sodium 141 Potassium 4.1 Chloride 108 Carbon Dioxide 23 Anion Gap 14 BUN 20 H Creatinine 0.80 Estim Creat Clear Calc 40.0 Estimated GFR > 60 Random Glucose 103 Calcium 9.2 Magnesium 2.0 Total Bilirubin 0.2 Direct Bilirubin < 0.2 AST 13 ALT 6 Alkaline Phosphatase 78 Troponin I High Sens 85.7 H* 101.4 H* 117.7 H* B-Natriuretic Peptide 585 H Total Protein 7.1 Albumin 3.4 L COVID-19 ([facility]YA) Negative COVID-19 Clin Com See Note 06/09/23 11:10 WBC RBC Hgb Hct MCV MCH MCHC RDW Plt Count MPV Immature Gran % (Auto) Neut % (Auto) Lymph % (Auto) Haakon % (Auto) Eos % (Auto) Baso % (Auto) Lymph # (Auto) Haakon # (Auto) Eos # (Auto) Baso # (Auto) Abs Immat Gran (auto) Absolute Neuts (auto) Absolute Nucleated RBC Nucleated RBC % (auto) PT 12.3 INR 1.0 aPTT Heparin Protocol 29.9 L D-Dimer High Sensitivty Sodium Potassium Chloride Carbon Dioxide Anion Gap BUN Creatinine Estim Creat Clear Calc Estimated GFR Random Glucose Calcium Magnesium Total Bilirubin Direct Bilirubin AST ALT Alkaline Phosphatase Troponin I High Sens B-Natriuretic Peptide Total Protein Albumin COVID-19 ([facility]YA) COVID-19 Clin Com Imaging Radiologist's impression: Impressions Chest X-Ray 06/09/23 03:50 IMPRESSION: Elevated right hemidiaphragm, likely with adjacent basilar atelectasis. No additional acute findings identified. Chest CTA 06/09/23 06:02 IMPRESSION: 1. No pulmonary embolus identified. 2. Trace right pleural effusion. Right basilar atelectasis. 3. Mosaic attenuation throughout the lung parenchyma, which may represent heterogeneous air trapping. 4. Cardiomegaly. 5. Probably prominent subcarinal lymph node, nonspecific. 6. Small hyperdensity in the upper left kidney may reflect a hyperdense cyst. Correlation with nonemergent renal ultrasound is recommended. VTE: negative. Assessment and Plan (1) Elevated troponin: Status: Acute Atypical symptoms is elderly woman with EKG changes with mild changes with rising troponins with multiple risk factors include advanced age and peripheral vascular disease. Likelihood of obstructive coronary artery disease high. However given her frailty advanced age and limited lifestyle will pursue conservative management at this point time. Was discussed with her as well as her son-in-law at bedside. Will start on IV heparin. Continue dual antiplatelet therapy. Continue high-intensity statin therapy. Continue metoprolol therapy. Would obtain an echocardiogram in absence of having any significant major regional wall motion abnormality, management would be conservative. This was discussed with them. Will follow with you Procedures Date of Service Date of Service: 06/09/23
[2023-06-09 12:07] LABS: Hematocrit 35.7 % (37.0-47.0); Hemoglobin 11.5 g/dl (12.0-16.0); Mean Corpuscular HGB Conc 32.2 g/dl (31.0-35.0); Mean Corpuscular Hemoglobin 32.7 pg (27.0-33.0); Mean Corpuscular Volume 101.4 fL (80.0-98.0); Mean Platelet Volume 9.3 fL (9.4-12.3); Platelet Count 344 X10*3/uL (160-400); Red Blood Count 3.52 X10*6/uL (4.20-5.50); Red Cell Distribution Width 14.1 % (11.0-16.0); White Blood Count 9.2 X10*3/uL (4.8-10.8)
[2023-06-09] MEDS: 0.9 % Sodium Chloride Flush 3 ML SYRINGE IVFLUSH (16:34)
[2023-06-09 18:42] LABS: PTT Heparin Drip 103.4 SEC (53-77.9)
[2023-06-09] MEDS: Metoprolol Tartrate 25 MG TABLET PO (20:09)
[2023-06-09] MEDS: Melatonin 3 MG TABLET 6 MG PO (20:09)
[2023-06-09] MEDS: Magnesium Oxide 400 MG TABLET PO (20:10)
[2023-06-10] VITALS (7 sets, daily range): BP systolic 119–140; BP diastolic 54–63; PULSE 60–82; RESP 18–26; TEMP 36.1–37; O2SAT 94–98
--- NOTE | 2023-06-10 | ECG_ITS ---
Test Reason : NSTEMI Blood Pressure : / mmHG Vent. Rate : 065 BPM Atrial Rate : 065 BPM P-R Int : 208 ms QRS Dur : 126 ms QT Int : 552 ms P-R-T Axes : 048 -50 180 degrees QTc Int : 574 ms Normal sinus rhythm Left axis deviation Non-specific intra-ventricular conduction block Minimal voltage criteria for LVH, may be normal variant ( Remigio product ) Possible Anterolateral infarct , age undetermined Abnormal ECG When compared with ECG of 09-JUN-2023 08:46, T wave inversion now evident in Anterior leads Referred By: Jhonatan Sebastian Electronically Signed By:WILLIAM VALENTIN
[2023-06-10 02:49] LABS: PTT Heparin Drip 58.7 SEC (53-77.9)
[2023-06-10] MEDS: Levothyroxine Sodium 25 MCG TABLET PO (06:51)
[2023-06-10 08:00] LABS: Hematocrit 33.1 % (37.0-47.0); Mean Corpuscular HGB Conc 33.2 g/dl (31.0-35.0); Mean Corpuscular Hemoglobin 33.3 pg (27.0-33.0); Mean Corpuscular Volume 100.3 fL (80.0-98.0); Mean Platelet Volume 9.9 fL (9.4-12.3); Platelet Count 355 X10*3/uL (160-400); Red Cell Distribution Width 14.1 % (11.0-16.0); White Blood Count 9.1 X10*3/uL (4.8-10.8)
[2023-06-10 08:04] LABS: INTERNATIONAL NORM RATIO 1.1 (0.9-1.1); Prothrombin Time 12.8 SEC (11.1-13.3)
[2023-06-10] MEDS: Atorvastatin Calcium 40 MG TABLET PO (08:24)
[2023-06-10] MEDS: Escitalopram Oxalate 5 MG TABLET 7.5 MG PO (08:24)
[2023-06-10] MEDS: Metoprolol Tartrate 50 MG TABLET PO (08:25)
[2023-06-10] MEDS: Clopidogrel Bisulfate 75 MG TABLET PO (08:25)
[2023-06-10] MEDS: Aspirin Enteric Coated 81 MG TABLET.DR PO (08:25)
--- NOTE | 2023-06-10 09:50 | P.PNIM_ITS ---
Subjective Subjective Date of Service: 06/10/23 Interval History: fu chest pain and NSTEMI No further chest pain, hemodynamically stable Physical Exam 2 Vital Signs: Vital Signs: Last Vital Signs Temp 97.8 F 06/10/23 07:18 Pulse 82 06/10/23 07:18 Resp 25 H 06/10/23 07:18 BP 140/63 H 06/10/23 07:18 Pulse Ox 94 06/10/23 07:18 O2 Del Method Nasal Cannula 06/10/23 07:18 O2 Flow Rate 1 06/10/23 07:18 BMI result Body Mass Index 22.3 Const: Other: General: AO X 3, no acute distress Resp: CTA bilateral CVS: S1,S2,RRR GI: +BS, NT, no distention Skin: No rash Neuro: motor grossly intact Psych: appropriate affect Objective Data Active Medications Acetaminophen (Acetaminophen 325 Mg Tablet) 650 mg PO Q6H PRN PRN Reason: Pain, Mild (Pain Scale 1-3) Al Hydroxide/Mg Hydroxide (Magnesium Hydrox/Alum Hydrox 30 Ml Oral.Susp) 30 ml PO Q4H PRN PRN Reason: Heartburn/Nausea Aspirin (Aspirin Enteric Coated 81 Mg Tablet.) 81 mg PO DAILY@0800 [facility] Last Admin: 06/10/23 08:25 Dose: 81 mg Documented By: SHAMIKA Atorvastatin Calcium (Atorvastatin Calcium 40 Mg Tablet) 40 mg PO DAILY [facility] Last Admin: 06/10/23 08:24 Dose: 40 mg Documented By: SHAMIKA Clopidogrel Bisulfate (Clopidogrel Bisulfate 75 Mg Tablet) 75 mg PO DAILY@0800 [facility] Last Admin: 06/10/23 08:25 Dose: 75 mg Documented By: SHAMIKA Escitalopram Oxalate (Escitalopram Oxalate 5 Mg Tablet) 7.5 mg PO DAILY@0800 [facility] Last Admin: 06/10/23 08:24 Dose: 7.5 mg Documented By: SHAMIKA Comments: [id number] Guaifenesin (Guaifenesin 100 Mg/5 Ml Liquid) 5 ml PO Q4H PRN PRN Reason: Cough Heparin Sodium (Porcine) (Heparin Sodium,Porcine 5,000 Unit/Ml Vial) 2,100 unit 40 unit/kg (2100 unit) IVPUSH PROTOCOL BOLUS PRN; Protocol PRN Reason: 40 unit/kg - Heparin Protocol Heparin Sodium (Porcine) (Heparin Sodium,Porcine 5,000 Unit/Ml Vial) 4,100 unit 80 unit/kg (4100 unit) IVPUSH PROTOCOL BOLUS PRN; Protocol PRN Reason: 80 unit/kg - Heparin Protocol Heparin Sodium/Sodium Chloride (Heparin Sodium,Porcine/1/2ns) 25,000 unit in 250 mls @ 0 mls/hr IVCONT .Q0M [facility]; Protocol Last Titration: 06/10/23 02:56 Dose: 9 units/kg/hr, 4.66 mls/hr Documented By: APPLE Co-signed By: LINCOLN Levothyroxine Sodium (Levothyroxine Sodium 25 Mcg Tablet) 25 mcg PO DAILY@0600 [facility] Last Admin: 06/10/23 06:51 Dose: 25 mcg Documented By: APPLE Magnesium Oxide (Magnesium Oxide 400 Mg Tablet) 400 mg PO DAILY@1999 [facility] Last Admin: 06/09/23 20:10 Dose: 400 mg Documented By: APPLE Melatonin (Melatonin 3 Mg Tablet) 6 mg PO BEDTIME [facility] Last Admin: 06/09/23 20:09 Dose: 6 mg Documented By: APPLE Metoprolol Tartrate (Metoprolol Tartrate 25 Mg Tablet) 25 mg PO DAILY@2000 [facility]; Protocol Last Admin: 06/09/23 20:09 Dose: 25 mg Documented By: APPLE Metoprolol Tartrate (Metoprolol Tartrate 50 Mg Tablet) 50 mg PO DAILY@0800 [facility]; Protocol Last Admin: 06/10/23 08:25 Dose: 50 mg Documented By: SHAMIKA Nitroglycerin (Nitroglycerin 0.4 Mg Tab.Subl) 0.4 mg SUBLINGUAL Q5MX3 PRN PRN Reason: Chest Pain Ondansetron HCl (Ondansetron Hcl 4 Mg/2 Ml Vial) 4 mg IVPUSH Q8H PRN PRN Reason: Nausea and Vomiting Sodium Chloride (0.9 % Sodium Chloride Flush 3 Ml Syringe) 3 ml IVFLUSH QSHIFT [facility] Last Admin: 06/10/23 08:25 Dose: Not Given Documented By: SHAMIKA Non-Admin Reason: IV Running Labs 06/10/23 06:20 06/09/23 03:20 Labs: Laboratory Results - last 24 hr 06/09/23 06/09/23 06/09/23 11:10 12:01 18:12 MCV 101.4 H MCH 32.7 MCHC 32.2 RDW 14.1 Plt Count 344 MPV 9.3 L Absolute Nucleated RBC 0.000 Nucleated RBC % (auto) 0.0 PT 12.3 INR 1.0 aPTT Heparin Protocol 29.9 L 103.4 H D 06/10/23 06/10/23 06/10/23 02:18 06:20 09:00 MCV 100.3 H MCH 33.3 H MCHC 33.2 RDW 14.1 Plt Count 355 MPV 9.9 Absolute Nucleated RBC 0.000 Nucleated RBC % (auto) 0.0 PT 12.8 INR 1.1 aPTT Heparin Protocol 58.7 D 57.0 Assessment and Plan (1) NSTEMI (non-ST elevated myocardial infarction): Status: Acute Plan 83 year old with CAD, PAD here with chest pain NSTEMI Acute NSTEMI -being medically treated, reports no further chest pain -repeat ecg today -ASA, Plavxix, metoprolol, and statin -iv heparin for 48 hrs -Cardiology plan on no intervention Elevated BNP--no sings of heart failure, got Lasix in ED, monitor HTN--continue metoprolol PAD--ASA, Plavix hypothyroidism--levothyroxine DVT P--heparin Full code Need for inpatient IV heparin for NSTEMI Quality Stroke Does the patient have a stroke diagnosis?: No VTE Prior VTE?: No VTE Risk Level:: Medical - moderate - high VTE Device Contraindication: Treatment Not Indicated VTE Drug Contraindication: N/A - Med Ordered
--- NOTE | 2023-06-10 13:29 | MHC.CM.PN ---
CM MET WITH PT AND SON-IN-LAW AT BEDSIDE PT IS A LTC RESIDENT AT [facility] WHERE SHE REQUIRES ASSISTANCE WITH CARE AND USES A WHEEL CHAIR FOR MOBILITY PT SAYS SHE HAS A HCP ON FILE AT THE SNF, COPY REQUESTED VIA [facility] PCP: STORM MARIE IMM DELIVERED DCP: RETURN TO [facility] VIA BLS
--- NOTE | 2023-06-10 15:58 | CA_ITS ---
Transthoracic Echocardiogram Patient (Last, First, Middle): Elisabeth Winter J Gender: Female Date of : 1940 Age: 83 Procedure Date: 06/10/2023 Procedure Type: Transthoracic Echocardiogram Location: [facility] [place] Height: 152.4 cm Weight: 51.71 kg BSA: 1.47 m2 Heart Rate: 67 bpm BP: 131 / 57 mmHg Survey Manager: VIKKI Referring MD: Jad Armstrong MD Symptoms: NSTEMI Study Quality: Adequate w contrast ECG Rhythm: Sinus Conclusions: - The left ventricular systolic function is moderately decreased. The visually estimated ejection fraction is between 35-40%. - The apical anterior, apical septum, and mid anteroseptal segments are akinetic. - No obvious valvular pathology seen on this study. Findings Procedure Information Contrast agent, definity, is being given per protocol without apparent complications. Left Ventricle Normal left ventricular cavity size. There is normal left ventricular wall thickness. The left ventricular systolic function is moderately decreased. The visually estimated ejection fraction is between 35-40%. There is evidence of regional wall motion abnormalities. Evidence suggests grade I (mild) diastolic dysfunction. Wall Motion Rest Echo Findings The apical anterior, apical septum, and mid anteroseptal segments are akinetic. Right Ventricle Normal right ventricular cavity size and systolic function. Atria Both atria are normal in size. Aortic Valve There is moderate calcification of the aortic valve. There is mild aortic valve stenosis. There is trace (trivial) aortic valve regurgitation. Mitral Valve The mitral valve appears normal. There is no mitral valve regurgitation. There is no mitral valve stenosis. Pulmonic Valve The pulmonic valve is likely normal. Tricuspid Valve There is no tricuspid valve regurgitation. Tricuspid regurgitation envelope is inadequate for calculation of right ventricular systolic pressure. Great Vessels The asc aorta is normal in size. Small plaque is seen in the sino tubular ridge. Venous The inferior vena cava is normal in size and collapses less than 50% with inspiration. Pericardium/Pleural There is a trivial pericardial effusion. Prior Study Comparison No prior study available for comparison. Recommendations, Care & Conclusions No obvious valvular pathology seen on this study. Measurements 2D Linear Measurements IVSd: 0.96 0.6-0.9/0.6-1.0 cm LVIDd: 3.54 3.9-5.3/4.2-5.9 cm LVIDd Index: 2.41 2.4-3.2/2.2-3.1 cm/m2 LVIDs: 2.86 2.0-3.6 cm LVPWd: 1.03 0.7-1.1 cm LA Diam: 2.50 2.7-3.8/3.0-4.0 cm LAIDs Index: 1.70 1.5-2.3 cm/m2 LV Mass: 129.74 67-162/88-224 g LV Mass Index: 88.26 43-95/49-115 g/m2 LVOT Diam: 1.80 3.0+(-)1.3 cm 2D Systolic Function EF 4C: 35.30 >55% EF 2C: 49.10 >55% EF BiP: 43.50 >55% Mitral Valve MV VTI: 0.27 MV Pk Vitaly: 1.27 MV Mn Vitaly: 0.67 MV Pk Grad: 6.00 MV Mn Grad: 2.00 MV Pk E: 0.59 MV PK A: 1.16 MV Decel Time: 149.00 E/A: 0.50 E'Lateral: 2.39 E'Medial: 2.28 E/E' Med: 25.80 E/E' Lat: 24.60 PHT: 44.00 MVA PHT: 5.00 MVA Continuity: 1.51 Decel [place]: 3.94 Aortic Valve AoV Pk Vitaly: 1.30 AoV Mn Vitaly: 0.76 AoV VTI: 0.29 AoV Pk Grad: 7.00 Aov Mn Grad: 3.00 ALLEN Cont.VTI: 1.39 ALLEN Planim: 1.55 LVOT LVOT Pk Vitaly: 0.71 LVOT Mn Vitaly: 0.42 LVOT VTI: 0.16 LVOT Pk Grad: 2.00 LVOT Mn Grad: 1.00 LVOT Diam: 1.80 LVOT Area: 2.54 Diastolic Function MV Pk E: 0.59 MV Pk A: 1.16 E/A: 0.50 E'Medial: 2.28 E/E' Med: 25.80 E' Laterial: 2.39 E/E' Lat: 24.60 Right Ventricle TAPSE (mm): 18.10 TVS' Vitaly: 10.40 Tricuspid Valve RA Press: 8.00 Great Vessels Aorta Sinus of Valsalva: 3.40 2.0-3.5 cm Ao Asc: 3.60 2.1-3.4 cm Updated in Other Vendor System with Status of Final Jad Armstrong MD electronically signed on 06/11/2023 1:15:46 PM with status of Final
[2023-06-10 16:18] LABS: PTT Heparin Drip 53.6 SEC (53-77.9)
[2023-06-10] MEDS: 0.9 % Sodium Chloride Flush 3 ML SYRINGE IVFLUSH (18:51)
[2023-06-10] MEDS: Magnesium Oxide 400 MG TABLET PO (20:39)
[2023-06-10] MEDS: Metoprolol Tartrate 25 MG TABLET PO (20:40)
[2023-06-10] MEDS: Melatonin 3 MG TABLET 6 MG PO (20:40)
[2023-06-11 04:00] VITALS: BP 164/70; PULSE 70; RESP 20; TEMP 37; O2SAT 97
[2023-06-11] MEDS: Levothyroxine Sodium 25 MCG TABLET PO (05:18)
[2023-06-11 07:20] VITALS: BP 135/65; PULSE 71; RESP 18; TEMP 36.3; O2SAT 99
[2023-06-11 07:37] LABS: PTT Heparin Drip 51.9 SEC (53-77.9)
[2023-06-11] MEDS: Clopidogrel Bisulfate 75 MG TABLET PO (08:47)
[2023-06-11] MEDS: Escitalopram Oxalate 5 MG TABLET 7.5 MG PO (08:47)
[2023-06-11] MEDS: Metoprolol Tartrate 50 MG TABLET PO (08:47)
[2023-06-11] MEDS: Aspirin Enteric Coated 81 MG TABLET.DR PO (08:48)
[2023-06-11] MEDS: Atorvastatin Calcium 40 MG TABLET PO (08:48)
[2023-06-11] MEDS: Heparin Sodium,Porcine 5,000 UNIT/ML VIAL 2100 UNIT IVPUSH (08:48)
[2023-06-11] MEDS: 0.9 % Sodium Chloride Flush 3 ML SYRINGE IVFLUSH (08:48)
--- NOTE | 2023-06-11 09:43 | PM.DS ---
DS: Providers Provider Date of Service: 06/11/23 Date of admission: 06/09/23 08:11 Primary care physician: Med Interiano MD Consults: 06/09/23 08:13 Consult to Cardiology Routine Consulting Provider: [facility] [place] [facility] Reason for consultation: Chest pain, NSTEMI Has provider been notified: Yes DS: Diagnosis Discharge Diagnosis (1) NSTEMI (non-ST elevated myocardial infarction): Status: Acute DS: Summary Hospital Course Hospital Course: Chief Complaint: Chest pain 83 year old female with HTN, PVD on plavix, CAD with prior ID no detail,who presented from SNF with chest pain, she describes having mid chest and to some extent abdomina pain in the evening but is vague on details. The pain lasted briefly and resolved, there was no associteated sob. She has not had any further pain since coming to the ED. Work up has included elevated troponin i level of 85 and now 101, BNP of 585. On ECG TWI in I and AVL. She is presently pain free and hemodynamically stable. Given Aspirin and Lasix Hospital course: The patient presented with symptoms suggestive of a myocardial infarction, including chest pain, elevated troponin levels, and ECG changes indicative of ischemia. The treatment involved IV heparin, aspirin (ASA), Lipitor, and metoprolol. After evaluation by a qa specialist, conservative management was recommended. The echocardiogram was performed, and the patient remained chest pain-free and hemodynamically stable. Despite an elevated BNP, there were no signs or symptoms of heart failure, and the patient received Lasix in the ED. Upon discharge, the patient will continue with ASA, metoprolol, Lipitor, and as needed nitroglycerin for chest pain relief. Time Attestation Discharge coordination time: Greater than 30 minutes Quality: Safe Use of Opioids Does Pt have an Active Cancer Diagnosis on the Problem List?: No Quality: Stroke Does the patient have a stroke diagnosis?: No Physical Exam Vital Signs: Vital Signs: Last Vital Signs Temp 97.4 F 06/11/23 07:20 Pulse 71 06/11/23 07:20 Resp 18 06/11/23 07:20 BP 135/65 06/11/23 07:20 Pulse Ox 99 06/11/23 07:20 O2 Del Method Nasal Cannula 06/11/23 07:20 O2 Flow Rate 2 06/11/23 07:20 BMI result Body Mass Index 22.3 General: AO X 3, no acute distress Resp: CTA bilateral CVS: S1,S2,RRR GI: +BS, NT, no distention Skin: No rash Neuro: motor grossly intact Psych: appropriate affect DS: Data Data Completed and Pending Labs on day of discharge: Laboratory Results - last 24 hr 06/10/23 06/11/23 16:04 06:20 Hold Purple Top SEE NOTE aPTT Heparin Protocol 53.6 51.9 L Discharge Plan Discharge Anticipated Discharge Date/Time: 06/11/23 09:33 Patient Disposition: Xfer [facility] Discharge Diagnosis: NSTEMI, chest pain Referrals: [facility] [Outside] Med Interiano MD [Primary Care Provider] - 1 Week Discharge Medications: New nitroglycerin 0.4 mg tablet, sublingual 0.4 mg sublingual Q5M PRN (Reason: chest pain) Qty: 30 0RF Rx Instructions: do not exceed three doses per episode and call 911 if chest pain persists atorvastatin 40 mg Tablet 40 mg PO DAILY Qty: 30 0RF Continued acetaminophen 500 mg Tablet 1,000 mg PO TID estradiol [Estrace] 0.01 % (0.1 mg/gram) Cream 1 g VAGINAL MOWEFR Rx Instructions: at bedtime menthol-zinc oxide [Calmoseptine] 0.44-20.6 % Ointment 1 appl TOPICAL DAILY PRN (Reason: irritation) guaifenesin 100 mg/5 mL Liquid 200 mg PO Q4H PRN (Reason: Cough) levothyroxine 25 mcg tablet 25 mcg PO DAILY@0600 magnesium oxide 400 mg (241.3 mg magnesium) Tablet 400 mg PO DAILY@2000 [facility] 10 billion cell -200 mg Capsule 1 cap PO DAILY@0800 clopidogrel [Plavix] 75 mg tablet 75 mg PO DAILY@0800 melatonin 5 mg capsule 5 mg PO DAILY@1800 metoprolol tartrate 25 mg tablet 25 mg PO DAILY@2000 aspirin [Adult Aspirin Regimen] 81 mg tablet,delayed release (DR/EC) 81 mg PO DAILY@0800 tramadol 50 mg tablet 25 mg PO Q6H PRN (Reason: Pain) metoprolol tartrate 50 mg tablet 50 mg PO DAILY@0800 escitalopram oxalate 5 mg tablet 7.5 mg PO DAILY@0800 Discharge Orders: Discharge Order (Routine); Ordered 06/11/23 Ordered By: Jhonatan Sebastian Diet: Advance to usual diet Activity on Discharge: As tolerated Stand Alone Forms: Patient Portal Discharge page Care Plan Goals: recovery from heart attack Health Concerns: heart attack, chest pain Plan of Treatment: take Aspirin, metoprolol and Lipitor to reduce the risk of chest pain, take Nitro as needed for chest pain--up to 3 every 5 minutes and if chest pain persists, call 911 Follow up with your Doctor in a week Assessment: see above
--- NOTE | 2023-06-11 09:56 | PM.PNCARD ---
Subjective Subjective Date of Service: 06/11/23 Interval history: Patient offers no complaints. She states she is feeling okay. Review of Systems Review of Systems Yes all other systems are reviewed and are negative Constitutional: Reports as per HPI and Reports no additional constitutional complaints Eyes: Reports as per HPI and Denies no additional eye complaints Denies system reviewed and no additional complaints, except as documented and Reports as per HPI Cardiovascular: Reports as per HPI, Reports no additional cardiovascular complaints, Denies acrocyanosis, Denies cool extremities, Denies chest pain, Denies leg edema, Denies lightheadedness, Denies palpitations and Denies dyspnea Respiratory: Reports as per HPI, Denies no additional respiratory complaints and Denies dyspnea Gastrointestinal: Reports as per HPI and Denies no additional gastrointestinal complaints Genitourinary: Reports as per HPI Musculoskeletal: Reports no additional musculoskeletal complaints and Reports as per HPI Skin/Breast: Reports system reviewed and no additional complaints, except as docu Reports system reviewed and no additional complaints, except as documented and Reports as per HPI Psychiatric: Reports no additional psychiatric complaints and Reports as per HPI Endocrine: Reports no additional endocrine complaints, Reports as per HPI and Denies palpitations Hematologic/Lymphatic: Reports no additional hematologic/lymphatic complaints and Reports as per HPI Allergic/Immunologic: Reports no additional allergic/immunologic complaints and Reports as per HPI Physical Exam Vital Signs: Last Vital Signs Temp 97.4 F 06/11/23 07:20 Pulse 71 06/11/23 07:20 Resp 18 06/11/23 07:20 BP 135/65 06/11/23 07:20 Pulse Ox 99 06/11/23 07:20 O2 Del Method Nasal Cannula 06/11/23 07:20 O2 Flow Rate 2 06/11/23 07:20 BMI result Body Mass Index 22.3 Const General: comfortable and no acute distress Orientation/consciousness: patient oriented x3 HEENT Other: Unremarkable Head: Yes normal to inspection Neck Neck: Yes normal visual inspection Chest Chest palpation & inspection: normal inspection of the chest Resp Auscultation: clear to auscultation bilaterally Cardio Palpation: normal PMI Heart sounds: S1 normal heart sound present, S2 normal heart sound present, no gallops, no murmurs and no rubs GI Palpation (GI): Soft to palpation Back/Spine/Pelvis Other: unremarkable Skin General skin exam: no rashes or lesions noted Neuro General: patient oriented x3 Extrem General: Yes normal to inspection Psych Mental Status: mental status grossly normal Objective Labs and Meds 06/10/23 06:20 06/09/23 03:20 Lab results: Laboratory Results - last 24 hr 06/10/23 06/11/23 16:04 06:20 Hold Purple Top SEE NOTE aPTT Heparin Protocol 53.6 51.9 L Progress Note: A&P Assessment and plan (1) NSTEMI (non-ST elevated myocardial infarction): Status: Acute Plan Elderly female, frail chest pain, elevated troponins. Treat as NSTEMI but plan was to be conservative mainly from her overall health status. IV heparin drip x 48 hours, she is also on aspirin/Plavix. Beta-blockers. Statins. Echocardiogram has been completed but could not be reviewed because of technical issues. Discussed with Dr. Sebastian. Time Spent With Patient Time: Total time managing care of this patient today ____ minutes. Progress Note: Quality Stroke Does the patient have a stroke diagnosis?: No Procedures Date of Service Date of Service: 06/11/23
--- NOTE | 2023-06-11 10:23 | MHC.CM.PN ---
Per MD in ROUNDS discussion, Patient is medically cleared for dc today to return to LTC. Patient will return to LTC @ [facility] today at 3PM, via [facility]. CM left a detailed message for Daughter/HCP/Precious @ [phone], informing her of the dc plan.Last IMM addressed yesterday.
[2023-06-11 11:07] VITALS: BP 126/60; PULSE 61; RESP 20; TEMP 36.3; O2SAT 93
--- NOTE | 2023-06-11 12:58 | ECG_ITS ---
Test Reason : Chest Pain Blood Pressure : / mmHG Vent. Rate : 066 BPM Atrial Rate : 066 BPM P-R Int : 228 ms QRS Dur : 128 ms QT Int : 466 ms P-R-T Axes : 065 -56 136 degrees QTc Int : 488 ms Sinus rhythm with sinus arrhythmia with 1st degree A-V block Left axis deviation Non-specific intra-ventricular conduction block Minimal voltage criteria for LVH, may be normal variant ( Rawson product ) Possible Anterolateral infarct (cited on or before 10-JUN-2023) Abnormal ECG When compared to the previous EKG of Jun, No significant change was found Referred By: Jhonatan Bearden Electronically Signed By:WILLIAM VALENTIN
[2023-06-11 14:32] LABS: PTT Heparin Drip 40.5 SEC (53-77.9)
[2023-06-11 15:03] VITALS: BP 127/60; PULSE 86; RESP 20; TEMP 36.3; O2SAT 95
== END 2023-06-11 15:47 | DRG 282 ==
LOC: HO.ED 06:45 → HO.EDOVER 08:25 → HO.IMC 14:11
PROVIDERS: Admitting Provider Internal Medicine; Emergency Provider Emergency Medicine; PCP Family Medicine; Visit Provider Internal Medicine
DX: I21.4 Non-ST elevation (NSTEMI) myocardial infarction (principal); I10 Essential (primary) hypertension; I25.10 Atherosclerotic heart disease of native coronary artery without angina pectoris; E03.9 Hypothyroidism, unspecified; Z20.822 Contact with and (suspected) exposure to COVID-19; Z79.02 Long term (current) use of antithrombotics/antiplatelets; Z79.82 Long term (current) use of aspirin; Z79.890 Hormone replacement therapy; Z79.899 Other long term (current) drug therapy
CPT/HCPCS: 36415; 71045; 71275; 80048; 80076; 83735; 83880; 84484; 85025; 85027; 85379; 85610; 85730; 87635; 93005; 93306; 99285; J1644; J1940; Q9957; Q9967

== ENCOUNTER 2023-06-09 08:11 | Outpatient (BNV) | payer MEDICARE, MEDICAID, SELFPAY | END 2023-06-10 13:47 | PROVIDERS: Admitting Provider Internal Medicine; Emergency Provider Emergency Medicine; PCP Family Medicine; Visit Provider Internal Medicine | DX: I35.0 Nonrheumatic aortic (valve) stenosis (principal) | CPT/HCPCS: 93010; 93306 ==

== ENCOUNTER 2023-06-09 08:11 | Outpatient (BNV) | payer MEDICARE, MEDICAID, SELFPAY | END 2023-06-11 12:58 | PROVIDERS: Admitting Provider Internal Medicine; Emergency Provider Emergency Medicine; PCP Family Medicine; Visit Provider Internal Medicine | DX: R07.9 Chest pain, unspecified (principal); I44.0 Atrioventricular block, first degree | CPT/HCPCS: 93010 ==

== ENCOUNTER → 2023-06-09 08:11 | Outpatient (BNV) | payer MEDICARE, MEDICAID, SELFPAY | PROVIDERS: Admitting Provider Internal Medicine; Emergency Provider Emergency Medicine; PCP Family Medicine; Visit Provider Internal Medicine | DX: I21.4 Non-ST elevation (NSTEMI) myocardial infarction (principal) | CPT/HCPCS: 99223; 99232; 99238 ==

== ENCOUNTER → 2023-06-09 08:11 | Outpatient (BNV) | payer MEDICARE, MEDICAID, SELFPAY | PROVIDERS: Admitting Provider Internal Medicine; Emergency Provider Emergency Medicine; PCP Family Medicine; Visit Provider Internal Medicine Cardiovascular Disease | DX: R07.9 Chest pain, unspecified (principal); I44.0 Atrioventricular block, first degree | CPT/HCPCS: 93010; 99222; 99233 ==

== ENCOUNTER 2023-06-27 13:03 | Outpatient (AMB) | payer MEDICARE, MEDICAID, SELFPAY ==
[2023-06-27 13:06] VITALS: BP 126/56; PULSE 64; O2SAT 95
--- NOTE | 2023-06-27 13:06 | A.OFFVIS_ITS ---
Intake Vital Signs 06/27/23 13:06 Height 5 ft BMI Reason not done Patient refused/unable BP 126/56 L Blood Pressure Location Lt brachial Position Sitting Pulse 64 Pulse Source Pulse Oximeter Pulse Oximetry (%) 95 Oxygen Delivery Method Room Air Intake Visit Reasons: [facility] discharge follow up Intake Note: pt presentsto the office today for [facility] discharge follow up. Allergies No Known Allergies Allergy (Verified 06/27/23 13:14) HPI HPI Comments History of Present Illness Details 83-year-old female is here toady for a h ospital discharge follow-up. She was admitted for chest pain and found to have a NSTEMI. She presents with staff from her facility. Patient reports she has had no chest pain, shortness of breath, dizziness, palpitations, bleeding, or orthopnea. Records from facility reviewed and note from recent rounding visit reports patient has been doing well with no reported incidents, vitals were stable, and continuing with medication as planned. She does not ambulate on her own and uses a wheelchair. [facility] Medical History Myocardial infarction Hypertension Social History Household Members: None Housing: Assisted Living Facility Do you presently have visiting nurse or other home services: No Patient Tobacco Use Status: Never used Tobacco service: No Review of Systems Card Reports rapid heart rate Physical Exam Const General: healthy appearing and no acute distress Orientation/consciousness: patient oriented x3 HEENT Head: Yes normal to inspection Eyes General: appearance normal, both eyes and all related structures Neck Neck: Yes normal visual inspection Chest Chest palpation & inspection: normal inspection of the chest Resp Effort & Inspection: normal respiratory effort Auscultation: clear to auscultation bilaterally Cardio Jugular venous distension: no JVD Palpation: normal PMI Rate: regular rate Rhythm: regular rhythm Heart sounds: S1 normal heart sound present, S2 normal heart sound present, no click, no gallops, no murmurs and no rubs GI Inspection: Yes normal to inspection Palpation (GI): Soft to palpation Skin General skin exam: no rashes or lesions noted Neuro General: patient oriented x3 Extrem General: Yes normal to inspection Psych Appearance: grossly normal Assessment & Plan Assessment & Plan (1) NSTEMI (non-ST elevated myocardial infarction): Code(s): I21.4 - Non-ST elevation (NSTEMI) myocardial infarction Plan: Echocardiogram done while in-patient care which had wall motion abnormality suggestive of underlying coronary artery disease. Patient recently seen for chest discomforts treated as NSTEMi with conservative treatment. On statins, beta blockers, low dose aspirin, and plavix - Continue. Coding Level of Care Code Est Pt Level 3 (48021) Diagnoses NSTEMI (non-ST elevated myocardial infarction) I21.4
== END 2023-06-27 13:36 | disposition home or self-care (01) ==
PROVIDERS: PCP Family Medicine; Visit Provider Nurse Practitioner
DX: I21.4 Non-ST elevation (NSTEMI) myocardial infarction (principal)
CPT/HCPCS: 99213

== ENCOUNTER → 2023-06-27 13:03 | Outpatient (BNVA) | payer MEDICARE, MEDICAID, SELFPAY | PROVIDERS: PCP Family Medicine; Visit Provider Nurse Practitioner | DX: I21.4 Non-ST elevation (NSTEMI) myocardial infarction (principal) | CPT/HCPCS: 99212 ==

== ENCOUNTER 2023-10-15 10:26 | Outpatient (REF) | payer MEDICARE, MEDICAID, SELFPAY ==
--- NOTE | ~2023-10-15 | US_ITS ---
EXAMINATION: NONINVASIVE ASSESSMENT OF THE ARTERIES OF BOTH LOWER EXTREMITIES WITH PVR EXAM AND BILATERAL LOWER EXTREMITY DUPLEX Jaimee Wynne MD CLINICAL INFORMATION: Peripheral vascular disease TECHNIQUE: Ankle pulse volume recordings, ankle pressure measurements and ankle brachial indices were obtained of the lower extremity arterial system bilaterally in addition to duplex Doppler techniques with wave form analysis and measurement of velocities in the common femoral, profunda femoral, superficial femoral, popliteal and tibial arteries. The study was performed only at rest. COMPARISON: Arterial exam on 09/17/2022 FINDINGS: a) AT REST: RIGHT LE. The right ankle-brachial index is: 1.20 * >0.97-1.25 = normal - no significant arterial disease * 0.75-0.96 = mild peripheral arterial disease * 0.5-0.74 = moderate peripheral arterial disease * <0.50 = severe peripheral arterial disease 2. Right ankle pressure: Abnormal 3. Right ankle PVR waveform: Abnormal 4. Right direct duplex Doppler findings: Common femoral artery: 93 cm/s, Multiphasic Profunda femoris artery: 107 cm/s, Multiphasic Superficial femoral artery (proximal): 94 cm/s, Multiphasic Superficial femoral artery (mid): 66 cm/s, Multiphasic Superficial femoral artery (distal): 53 cm/s, Multiphasic Proximal Popliteal artery: 122 cm/s, Multiphasic Mid posterior tibial artery: 21 cm/s, Multiphasic The anterior tibial artery, peroneal artery, and dorsalis pedis arteries were not visualized. LEFT LE. The left ankle-brachial index is: 1.19 * >0.97-1.25 = normal - no significant arterial disease * 0.75-0.96 = mild peripheral arterial disease * 0.5-0.74 = moderate peripheral arterial disease * <0.50 = severe peripheral arterial disease 2. Left ankle pressure: Abnormal 3. Left ankle PVR waveform: Abnormal 4. Left direct duplex Doppler findings: Common femoral artery: 81 cm/s, Multiphasic Profunda femoris artery: 87 cm/s, Multiphasic Superficial femoral artery (proximal): 65 cm/s, Multiphasic Superficial femoral artery (mid): 71 cm/s, monophasic, within stent Superficial femoral artery (distal): 34 cm/s, monophasic, within stent Proximal Popliteal artery: 47 cm/s, monophasic The posterior tibial artery, anterior tibial artery, peroneal artery, and dorsalis pedis arteries were not visualized. US/US arterial duplex LE BI IMPRESSION: RIGHT LEG: Abnormal PVR and AGUSTIN. Significant atherosclerotic disease, particularly distal to the popliteal artery. LEFT LEG: Abnormal PVR and AGUSTIN. Significant atherosclerotic disease, particularly distal to the popliteal artery. Patent SFA stent.
== END 2023-10-15 10:27 | disposition home or self-care (01) ==
LOC: HO.US 10:26
PROVIDERS: PCP Family Medicine; Visit Provider Surgery Vascular Surgery
DX: I73.9 Peripheral vascular disease, unspecified (principal)
CPT/HCPCS: 93923; 93925

== ENCOUNTER 2023-11-21 09:46 | Outpatient (AMB) | payer MEDICARE, MEDICAID, SELFPAY ==
--- NOTE | 2023-11-21 09:48 | A.OFFVIS_ITS ---
Intake Visit Reasons: follow up s/p ART US 10/15/23 Intake Note: Patient presents for follow up arterial US. Patient has no complaints. Allergies No Known Allergies Allergy (Verified 11/21/23 09:50) HPI HPI follow up s/p ART US 10/15/23: Details: Very pleasant 83-year-old female presents for routine arterial surveillance. She had undergone left lower extremity endovascular intervention nearly 3 years ago. She had a calf and toe ulcer which has gone on to heal. She has progressively declined and at the current time is mostly wheelchair-bound. She barely ambulates and does stand up to transfer but that is about it. She now presents for follow-up with surveillance noninvasive testing. [facility] Medical History Myocardial infarction Hypertension Social History Household Members: None Housing: Assisted Living Facility Do you presently have visiting nurse or other home services: No Patient Tobacco Use Status: Never used Tobacco service: No Review of Systems Const All systems reviewed & are unremarkable except as noted in HPI and below Reports no additional complaints ENT Reports Normal hearing present Card Denies chest pain, Denies chest pain at rest, Denies chest pain with activity and Denies pedal edema Resp Denies cough GI Denies abdominal pain Musc Denies abnormal gait, Denies muscle cramps and Denies radiating pain into limb Skin/Breast Denies skin ulcer and Denies wounds Neuro Reports Normal hearing present and Denies abnormal gait Psych Reports no additional complaints Physical Exam Const General: cooperative, healthy appearing and comfortable Orientation/consciousness: oriented to person, oriented to place and oriented to time HEENT Head: Yes normal to inspection Neck Neck: Yes normal visual inspection Carotids: no bruits Chest Chest palpation & inspection: normal inspection of the chest Resp Effort & Inspection: normal respiratory effort and able to speak in complete sentences Auscultation: clear to auscultation bilaterally, no crackles, no rales, no rhonchi and no wheezes Cardio Other: Bilateral DP signals Rate: regular rate Rhythm: regular rhythm Heart sounds: S1 normal heart sound present and S2 normal heart sound present Bruits: no carotid bruits GI Inspection: Yes normal to inspection Skin Other: No active lower extremity ulceration Wounds: no wounds Hair: normal Neuro General: oriented to person, oriented to place and oriented to time Cranial nerves: Yes CN's II-XII intact bilaterally and Yes Normal hearing present Cognition (Neuro): normal cognition Motor exam (neuro): 5/5 motor strength present throughout Extrem Other: venous exam: No significant superficial varicosities or spider telangiectasias, minimal edema General: No clubbing, No cyanosis and No edema Psych Appearance: grossly normal Mental Status: mental status grossly normal Speech and movement: Normal speech and movement present Results Reviewed Results Reviewed: Noninvasive testing dated 10/15/2023 demonstrates AGUSTIN on the right of 1.20 and on the left of 1.19. Written report and images were reviewed. Assessment & Plan Assessment & Plan (1) PAD (peripheral artery disease): Comment: 11/23/2020 - left SFA atherectomy with stent placement Code(s): I73.9 - Peripheral vascular disease, unspecified Category: Medical Plan: In short patient is stable from a peripheral vascular standpoint. She has had stable 3 year arterial surveillance follow-up. At the current time she is now on ambulatory. I would not recommend any further surveillance or intervention on her unless she has critical limb ischemia. I did recommend a follow-up with us on an as-needed basis. We did discuss the plan with the family and they were in agreement. I also discussed the importance ambulation and trying to get up as much as possible. This was also written on my note to the facility we as well. She will follow up with us on an as-needed basis. Thank you for allowing us to assist in her care. Coding Level of Care Code Est Pt Level 4 (79571) Diagnoses PAD (peripheral artery disease) I73.9
== END 2023-11-21 10:21 | disposition home or self-care (01) ==
PROVIDERS: PCP Family Medicine; Visit Provider Surgery Vascular Surgery
DX: I73.9 Peripheral vascular disease, unspecified (principal)
CPT/HCPCS: 99214

== ENCOUNTER → 2023-11-21 09:46 | Outpatient (BNVA) | payer MEDICARE, MEDICAID, SELFPAY | PROVIDERS: PCP Family Medicine; Visit Provider Surgery Vascular Surgery | DX: I73.9 Peripheral vascular disease, unspecified (principal); Z99.3 Dependence on wheelchair | CPT/HCPCS: 99212 ==

== ENCOUNTER 2023-12-24 09:53 | Inpatient (IN) | payer MEDICARE, MEDICAID, SELFPAY ==
--- NOTE | ~2023-12-24 | US_ITS ---
EXAMINATION: US TRIPLEX LOWER EXTREMITY, BILATERAL CLINICAL INFORMATION: Bilateral calf tender to palpation, primarily bedbound, rule out DVT COMPARISON: None available. TECHNIQUE: Color-flow triplex imaging with spectral analysis and compression Doppler were performed on the bilateral lower extremities. FINDINGS: Respiratory variation, normal compression and augmented flow are noted throughout the bilateral lower extremities. The visualized common femoral vein, superficial femoral vein, profunda femoral vein, popliteal vein and show no evidence of deep venous thrombosis bilaterally. Left posterior tibial and peroneal veins and right peroneal vein not visualized. There is no Kelley's cyst. US/US venous duplex LE BI IMPRESSION: 1. No evidence of deep venous thrombosis involving the bilateral lower extremities. 2. Left posterior tibial and peroneal veins and right peroneal vein not visualized. Electronically signed by: Jeimy Caballero DO 12/24/2023 05:37 PM EDT
--- NOTE | ~2023-12-24 | XR_ITS ---
EXAMINATION: XR CHEST CLINICAL INFORMATION: Shortness of breath. COMPARISON: CTA chest dated 06/09/2023. TECHNIQUE: Frontal view of the chest was obtained. FINDINGS: Hypoinflation of the lungs. No large, focal airspace consolidation. No pleural effusion or pneumothorax. Unremarkable cardiomediastinal silhouette. Prominent reverse S-shaped scoliotic curvature of the thoracolumbar spine. XR/XR chest 1V IMPRESSION: Hypoinflation of the lungs without large, focal airspace consolidation. Electronically signed by: Hayden Lutz MD 12/24/2023 02:30 PM EDT
--- NOTE | ~2023-12-24 | CT_ITS ---
EXAMINATION: CT HEAD WITHOUT CONTRAST CLINICAL INFORMATION: 83-year-old female with acute mental status change COMPARISON: None available. TECHNIQUE: Contiguous axial imaging was performed from the skull base to vertex without intravenous administration of contrast. This CT examination was performed using dose optimization techniques as appropriate, variously including the following: *Automated exposure control *Adjustment of mA and/or kV according to patient size (this includes techniques or standardized protocols for targeted exams where dose is matched to indication/reason for exam; i.e. extremities or head) *Use of iterative reconstruction technique DLP: 563 mGy-cm FINDINGS: There is no evidence of intracranial hemorrhage, masses, mass effect. There is no midline shift. Ventricles, sulci and cisterns are prominent secondary to global volume loss. There is preserved whalen to white matter differentiation. There are patchy periventricular white matter changes as a sequela of microangiopathy. Visualized paranasal sinuses and mastoids are well aerated. CT/CT head/brain wo IV con IMPRESSION: Sequela of microangiopathy and global volume loss.
[2023-12-24 10:10] VITALS: BP 110/86; BP 118/67; PULSE 80; PULSE 86; RESP 12; TEMP 37; O2SAT 95; O2SAT 96; BMI 19.9
[2023-12-24 10:18] VITALS: BP 118/67; PULSE 80; RESP 12; TEMP 37; O2SAT 95
--- NOTE | 2023-12-24 10:23 | PC.NURSE ---
Pt comes from [facility] for reports of desating into the 80's and lethargy. Per report, Pt with dementia at baseline--oriented to person. Pt denies pain, VSS at this time, and NAD noted. Breaths are slow, even and unlabored.
[2023-12-24 11:16] LABS: MANUAL DIFF FLAG NO
[2023-12-24 11:25] LABS: Basophils Absolute Auto 0.1 X10*3/uL (0.0-0.2); Basophils Percent Auto 0.6 % (0-2); Eosinophils Absolute Auto 0.2 X10*3/uL (0.0-0.4); Eosinophils Percent Auto 2.7 % (0-4); Hematocrit 39.8 % (37.0-47.0); Imm Gran Abs Auto 0.06 X10*3/uL (0.00-0.03); Imm Gran Pct Auto 0.7 % (0.0-0.4); Mean Corpuscular HGB Conc 32.7 g/dl (31.0-35.0); Mean Corpuscular Hemoglobin 33.9 pg (27.0-33.0); Mean Corpuscular Volume 103.6 fL (80.0-98.0); Mean Platelet Volume 10.2 fL (9.4-12.3); Monocytes Absolute Auto 0.5 X10*3/uL (0.1-1.2); Neutrophils Absolute Auto 5.8 x10*3/uL (2.0-8.3); Platelet Count 239 X10*3/uL (160-400); Red Blood Count 3.84 X10*6/uL (4.20-5.50); Red Cell Distribution Width 15.4 % (11.0-16.0); White Blood Count 8.7 X10*3/uL (4.8-10.8)
--- NOTE | 2023-12-24 11:34 | ED.GENADULT ---
HPI - General Adult General Chief complaint: Altered Mental Status Stated complaint: AMS Difficulty breathing Time Seen by Provider: 12/24/23 11:20 Source: patient and family Mode of arrival: wheelchair Limitations: altered mental status History of Present Illness ED Provider: Soheila MANZANO HPI narrative: 83 year old female with pmh KS, CKD, solitary kidney, HTN presenting from SNF with daughter due to concerns of AMS x 3 weeks and difficulty breathing this morning per EMS (O2: 88% improved to 96% on 3L, currently 95% on RA). Daughter states patient's mental status is not at her baseline and she has been progressively worse for 3 weeks. Daughter states pt has also had decreased appetite for past 3 weeks as well. Pt also was recently treated for a UTI 2 weeks ago. Denies cp, sob, vomiting, diarrhea, falls, trauma, urinary changes. Related Data Home Medications ?Medication ?Instructions ?Recorded ?Confirmed aspirin 81 mg tablet,delayed 81 mg PO DAILY@79911/10/20 12/24/23 release (Adult Aspirin Regimen) melatonin 5 mg capsule 5 mg PO DAILY@179911/10/20 12/24/23 metoprolol tartrate 25 mg tablet 25 mg PO BEDTIME@199911/10/20 12/24/23 metoprolol tartrate 50 mg tablet 50 mg PO DAILY@79902/23/21 12/24/23 Lactobacillus rhamnosus GG 10 1 cap PO DAILY@79906/09/23 12/24/23 billion cell-inulin 200 mg capsule ([facility]) acetaminophen 500 mg tablet 1,000 mg PO TID PRN Pain 06/09/23 12/24/23 clopidogrel 75 mg tablet (Plavix) 75 mg PO DAILY@79906/09/23 12/24/23 estradiol 0.01% (0.1 mg/gram) 1 g vaginal MOWEFR 06/09/23 12/24/23 vaginal cream (Estrace) levothyroxine 25 mcg tablet 25 mcg PO DAILY@59906/09/23 12/24/23 magnesium oxide 400 mg (241.3 mg 400 mg PO DAILY@199906/09/23 12/24/23 magnesium) tablet bisacodyl 10 mg rectal suppository 10 mg OR DAILY PRN Constipation 06/27/23 12/24/23 acetaminophen 500 mg tablet 1,000 mg PO BID 12/24/23 12/24/23 (Tylenol Extra Strength) atorvastatin 40 mg tablet 40 mg PO BEDTIME 12/24/23 12/24/23 magnesium hydroxide 400 mg/5 mL 30 ml PO DAILY PRN Constipation 12/24/23 12/24/23 oral suspension (Milk of Magnesia) mirtazapine 15 mg tablet (Remeron) 7.5 mg PO BEDTIME 12/24/23 12/24/23 omeprazole 20 mg capsule,delayed 20 mg PO DAILY@0630 12/24/23 12/24/23 release ondansetron HCl 4 mg tablet 4 mg PO Q6H PRN Nausea And Vomiting 12/24/23 12/24/23 sodium phosphates 19 gram-7 118 ml OR DAILY PRN Constipation 12/24/23 12/24/23 gram/118 mL enema (Fleet Enema) Previous Rx's ?Medication ?Instructions ?Recorded nitroglycerin 0.4 mg sublingual 0.4 mg sublingual Q5M PRN chest 06/11/23 tablet pain #30 tabs Allergies Allergy/AdvReac Type Severity Reaction Status Date / Time No Known Allergies Allergy Verified 12/24/23 10:17 Review of Systems Review of Systems: Yes all other systems are reviewed and are negative [facility] Past Medical History Medical History Myocardial infarction Hypertension Social History Social History Household Members: None Housing: Assisted Living Facility Do you presently have visiting nurse or other home services: No Patient Tobacco Use Status: Never used Tobacco Smoked in Last 30 Days: No Use of substances other than those prescribed or required for medical reasons: No Advance Directives: No Do you have a plan to hurt others: No Plan service: No Physical Exam ED Vital Signs: Vital Signs - 24 hr 12/24/23 10:10 12/24/23 10:18 Temperature 98.6 F 98.6 F Pulse Rate 80 80 Respiratory Rate 12 12 Blood Pressure 118/67 118/67 Pulse Oximetry 95 95 Oxygen Delivery Method Room Air Room Air BMI result Body Mass Index 19.9 VSS Appearance: Alert.? Oriented X3.? No acute distress.? Head: Normocephalic, atraumatic, no step-offs or deformities Eyes: Pupils equal, round and reactive to light.? Neck: Normal inspection.? Neck supple.? CVS: Normal heart rate and rhythm.? Pulses normal.? Respiratory: No respiratory distress.? Breath sounds normal.? Abdomen: Soft and nontender.? Skin: Skin warm and dry.? Normal skin color.? Normal skin turgor.? Extremities: No lower extremity edema.? No calf ttp. Global weakness UE and LE w/ contraction @ baseline Neuro: Oriented X 1 only to person.? No motor deficit.? No sensory deficit. CN 2-12 intact Course Reevaluation(s) Reevaluation #1: Patient extremely difficult stick. I was able to obtain access in the L axilla Time: 13:10 Reevaluation #2: CBC unremarkable. Chemistry slight bump in anion gap likely d/t starvation ketosis as patient has not been eating much and has ketones in urine. Head scan done and pending. Plan hospital admission. Time: 13:43 Medical Decision Making Medical Decision Making [facility] Narrative: 83 year old female presenting from SNF with concerns of AMS and difficulty breathing PE - benign Hx and pe concerning for UTI vs dementia vs delirium vs metabolic derrangments. Unlikely stroke, posterior stroke, ICH, meningitis vs encephalitis. Will rule out metabolic derangement. SOB likely viral illness vs PNA. Unlikley PE, chf, acs. Plan- urine, labs, imaging Differential Diagnosis Differential Diagnoses: The differential diagnosis associated with the presentation includes Hx and pe concerning for UTI vs dementia vs delirium vs metabolic derrangments. Unlikely stroke, posterior stroke, ICH, meningitis vs encephalitis. Will rule out metabolic derangement. SOB likely viral illness vs PNA. Unlikley PE, chf, acs. Admission/Observation Consideration of admission/observation: Escalation of care including admission/observation considered Consult Healthcare Provider Management of the patient was discussed with: Hospitalist Lab Data [facility] Lab Attestation statement: I reviewed the patient's lab results. 12/24/23 11:12 12/24/23 11:12 Labs: Lab Results 12/24/23 12/24/23 Range/Units 11:12 13:27 WBC 8.7 (4.8-10.8) X10*3/uL RBC 3.84 L (4.20-5.50) X10*6/uL Hgb 13.0 (12.0-16.0) g/dl Hct 39.8 D (37.0-47.0) % MCV 103.6 H (80.0-98.0) fL MCH 33.9 H (27.0-33.0) pg MCHC 32.7 (31.0-35.0) g/dl RDW 15.4 (11.0-16.0) % Plt Count 239 D (160-400) X10*3/uL MPV 10.2 (9.4-12.3) fL Immature Gran % (Auto) 0.7 H (0.0-0.4) % Neut % (Auto) 67.0 (45-73) % Lymph % (Auto) 23.0 (20-40) % [place] % (Auto) 6.0 (2-11) % Eos % (Auto) 2.7 (0-4) % Baso % (Auto) 0.6 (0-2) % Lymph # (Auto) 2.0 (1.2-4.9) X10*3/uL [place] # (Auto) 0.5 (0.1-1.2) X10*3/uL Eos # (Auto) 0.2 (0.0-0.4) X10*3/uL Baso # (Auto) 0.1 (0.0-0.2) X10*3/uL Abs Immat Gran (auto) 0.06 H (0.00-0.03) X10*3/uL Absolute Neuts (auto) 5.8 (2.0-8.3) x10*3/uL Absolute Nucleated RBC 0.000 (0.0-0.012) X10*3/uL Nucleated RBC % (auto) 0.0 (0.0-0.2) /100WBC Sodium 138 (135-145) mmol/L Potassium 4.9 (3.3-5.1) mmol/L Chloride 103 (96-108) mmol/L Carbon Dioxide 19 L (22-29) mmol/L Anion Gap 21 H (12-20) BUN 25 H (9-16) mg/dL Creatinine 0.84 (0.5-1.4) mg/dL Estim Creat Clear Calc 33.3 Estimated GFR > 60 Random Glucose 77 (60-115) mg/dL Calcium 9.3 (8.4-10.2) mg/dL Total Bilirubin 0.3 (0.0-1.0) mg/dL AST 30 (5-31) U/L ALT 13 (0-31) U/L Alkaline Phosphatase 88 (39-117) U/L Total Creatine Kinase 25 L (26-140) U/L Total Protein 7.1 (6.5-8.0) g/dL Albumin 3.3 L (3.5-5.0) g/dL Urine Color Dark Yellow Urine Appearance Clear Urine pH 5.5 (5.0-9.0) Ur Specific [place] >= 1.030 H (1.005-1.025) Urine Protein Trace (Neg-Trace) mg/dL Urine Glucose (UA) Negative (Negative) mg/dL Urine Ketones 40 (Negative) mg/dL Urine Blood Negative (Negative) Urine Nitrite Positive H (Negative) Ur Leukocyte Esterase Small (1+) H (Negative) Independent Interpretation I performed an independent interpretation of an: EKG, Plain X-Ray and CT Scan Radiology Impression Discussion of test interpretation with radiology: I have reviewed the radiologist's reading. External Record Review External record reviewed: Inpatient record, Office record, Outpatient record, Prior outpatient labs, Prior outpatient radiology and Primary care record Chronic Conditions Patient?s care impacted by: Hypertension and Other (CAD, solitary kidney ) Critical Care Time Critical Care Time Critical Care Time: Yes Total Critical Care Time: 35 Attestation: I attest to this time spent taking care of the patient, obtaining history, physical, reviewing labs, imaging, speaking to my attending, specialist or hospitalist. Discharge Plan Discharge Clinical Impression: Delirium, UTI (urinary tract infection), Dehydration Prescriptions: No Action ondansetron HCl [Zofran] 4 mg Tablet 4 mg PO Q6H PRN (Reason: Nausea And Vomiting) acetaminophen [Tylenol Extra Strength] 500 mg Tablet 1,000 mg PO BID omeprazole 20 mg capsule,delayed release(DR/EC) 20 mg PO DAILY@0630 mirtazapine [Remeron] 15 mg Tablet 7.5 mg PO BEDTIME magnesium hydroxide [Milk of Magnesia] 400 mg/5 mL Suspension 30 ml PO DAILY PRN (Reason: Constipation) Rx Instructions: For no BM in 3 days Fleet Enema 19-7 gram/118 mL Enema 118 ml OR DAILY PRN (Reason: Constipation) atorvastatin 40 mg tablet 40 mg PO BEDTIME acetaminophen 500 mg Tablet 1,000 mg PO TID PRN (Reason: Pain) estradiol [Estrace] 0.01 % (0.1 mg/gram) Cream 1 g VAGINAL MOWEFR Rx Instructions: at bedtime levothyroxine 25 mcg tablet 25 mcg PO DAILY@0600 magnesium oxide 400 mg (241.3 mg magnesium) Tablet 400 mg PO DAILY@2000 [facility] 10 billion cell -200 mg Capsule 1 cap PO DAILY@0800 clopidogrel [Plavix] 75 mg tablet 75 mg PO DAILY@0800 nitroglycerin 0.4 mg tablet, sublingual 0.4 mg sublingual Q5M PRN (Reason: chest pain) Qty: 30 0RF Rx Instructions: do not exceed three doses per episode and call 911 if chest pain persists melatonin 5 mg capsule 5 mg PO DAILY@1800 metoprolol tartrate 25 mg tablet 25 mg PO BEDTIME@2000 aspirin [Adult Aspirin Regimen] 81 mg tablet,delayed release (DR/EC) 81 mg PO DAILY@0800 metoprolol tartrate 50 mg tablet 50 mg PO DAILY@0800 bisacodyl 10 mg suppository 10 mg OR DAILY PRN (Reason: Constipation) Print Language: Bulgarian
[2023-12-24 11:39] LABS: Alanine Aminotransferase 13 U/L (0-31); Albumin Level 3.3 g/dL (3.5-5.0); Alkaline Phosphatase 88 U/L (39-117); Anion Gap 21 (12-20); Aspartate Amino Transferase 30 U/L (5-31); Bilirubin Total 0.3 mg/dL (0.0-1.0); Blood Urea Nitrogen 25 mg/dL (9-16); Calcium 9.3 mg/dL (8.4-10.2); Carbon Dioxide 19 mmol/L (22-29); Chloride 103 mmol/L (96-108); Creatinine Clr Calc Pharmacy 33.3; Estimated Glomerular Filt Rate > 60; Glucose Random 77 mg/dL (60-115); Potassium 4.9 mmol/L (3.3-5.1); Sodium 138 mmol/L (135-145); Total Protein 7.1 g/dL (6.5-8.0)
--- NOTE | 2023-12-24 13:07 | PC.NURSE ---
pt is a very difficult stick for labs, multiple attempts w butterflies. 22G PIV access established in left wrist w no return blood flow. provider notified. provider at bedside, assisting w lab draw - labs drawn by provider off of 22G PIV in left upper arm/chest, only sm amount of blood in cultures bottles/blood tubes d/t difficult draw.
[2023-12-24 13:33] LABS: Appearance Urine Clear; Color Urine Dark Yellow; Glucose Urine UA Negative (Negative); Leukocyte Esterase Urine Small (1+) (Negative); Nitrite Urine Positive (Negative); PH 5.5 (5.0-9.0); Specific Gravity - Urine >= 1.030 (1.005-1.025); UMIC TRIGGER UACC YES; Urine Blood Negative (Negative); Urine Ketones 40 mg/dL (Negative); Urine Protein Trace mg/dL (Neg-Trace)
--- NOTE | 2023-12-24 13:33 | PHA.MEDREC ---
Addendum entered by Clementina Ramirez RPh 12/24/23 13:49: Med rec was reviewed by [facility]. Original Note: Pharmacy Consult ? Medication Reconciliation Pharmacy has completed the medication reconciliation. Utilized med list from [facility] to confirm med list.
--- NOTE | 2023-12-24 13:44 | ECG_ITS ---
Test Reason : SOB Blood Pressure : / mmHG Vent. Rate : 071 BPM Atrial Rate : 071 BPM P-R Int : 226 ms QRS Dur : 122 ms QT Int : 476 ms P-R-T Axes : 052 -52 119 degrees QTc Int : 517 ms Sinus rhythm with 1st degree A-V block Left axis deviation Non-specific intra-ventricular conduction block Abnormal ECG When compared with ECG of 11-JUN-2023 12:54, No significant change was found Referred By: Declan Mo Electronically Signed By:DEVIN PAREDES
[2023-12-24 13:45] LABS: Bacteria Urine 4+ (None Seen); Hyaline Casts Urine 0-2 /LPF (0-2); RBC Urine 0-2 /HPF (0-2); UACC Culture Trigger YES
[2023-12-24] MEDS: cefTRIAXone sodium 1 GM in 0.9 % Sodium Chloride 50 ML IV (13:54)
[2023-12-24] MEDS: 0.9 % Sodium Chloride 500 ML IV (13:54)
[2023-12-24 14:17] VITALS: BP 160/71; PULSE 72; RESP 16; O2SAT 99
--- NOTE | 2023-12-24 14:58 | P.HPHOSP_ITS ---
History of Present Illness Date of Service: 12/24/23 Attending physician on admission: [facility] Chief Complaint: confusion, weakness 83-year-old female with history of unspecified dementia, hypothyroidism, coronary artery disease, peripheral vascular disease, hypertension who presents to the ED earlier today from SNF accompanied by her daughter, Precious who is healthcare proxy, and [id number], [place], due to confusion, weakness, and decreased p.o. intake ongoing for the last 3-4 weeks. She states she was diagnosed with a UTI at [facility] 3 weeks ago and was treated with keflex uc at that time showed pansensitive E coli. Urine culture was repeated on 12/19 but remains pending. Her daughter reports symptoms have not improved. She is confused from baseline. Today oriented to self only, baseline conversive oriented x3. She has not been eating or drinking much and has been very weak not getting out of bed. Per EMS patient was hypoxic to 86% but since arrival has not demonstrated any hypoxia. Vitals have been stable. No leukocytosis. Renal function baseline, lytes wnl except co2 19. UA with 1+ leuks, +nitrites, +urinary sediment and 4+ bacteria. SG also elevated. Head CT pending. CXR pending. In the ED, given 500ml IV NS and 1g IV ctx. Review of Systems 2 Review of Systems: Yes all other systems are reviewed and are negative [facility] Medical History Dementia NSTEMI (non-ST elevated myocardial infarction) PAD (peripheral artery disease) Myocardial infarction Hypertension Social History Household Members: None Housing: Assisted Living Facility Do you presently have visiting nurse or other home services: No Patient Tobacco Use Status: Never used Tobacco Smoked in Last 30 Days: No Use of substances other than those prescribed or required for medical reasons: No Advance Directives: No Do you have a plan to hurt others: No Plan service: No Meds Allergies Allergy/AdvReac Type Severity Reaction Status Date / Time No Known Allergies Allergy Verified 12/24/23 10:17 Active Medications: Current Medications Acetaminophen (Acetaminophen 325 Mg Tablet) 650 mg PO Q6H PRN PRN Reason: Pain, Mild (Pain Scale 1-3), fever or headache Calcium Carbonate (Calcium Carbonate 750 Mg Tab.Chew) 750 mg PO Q4H PRN PRN Reason: Heartburn Enoxaparin Sodium (Enoxaparin Sodium 40 Mg/0.4 Ml Syringe) 40 mg SUBCUT Q24H [facility] Lactated Ringer's (Lr) 1,000 mls @ 80 mls/hr IVCONT .[id number] [facility] Ceftriaxone Sodium 1 gm/ (Sodium Chloride) 50 mls @ 100 mls/hr IV Q24H [facility] Magnesium Hydroxide (Milk Of Magnesia 30 Ml Oral.Susp) 30 ml PO DAILY PRN PRN Reason: Constipation Melatonin (Melatonin 3 Mg Tablet) 6 mg PO BEDTIME PRN PRN Reason: Insomnia Sodium Chloride (0.9 % Sodium Chloride Flush 3 Ml Syringe) 3 ml IVFLUSH QSHIFT [facility] Home Medications ?Medication ?Instructions ?Recorded ?Confirmed ?Last Taken ?Type aspirin 81 mg tablet,delayed 81 mg PO DAILY@79911/10/20 12/24/23 Unknown History release (Adult Aspirin Regimen) melatonin 5 mg capsule 5 mg PO DAILY@179911/10/20 12/24/23 Unknown History metoprolol tartrate 25 mg tablet 25 mg PO BEDTIME@199911/10/20 12/24/23 Unknown History metoprolol tartrate 50 mg tablet 50 mg PO DAILY@79902/23/21 12/24/23 Unknown History Lactobacillus rhamnosus GG 10 1 cap PO DAILY@79906/09/23 12/24/23 Unknown History billion cell-inulin 200 mg capsule ([facility]) acetaminophen 500 mg tablet 1,000 mg PO DAILY PRN Pain 06/09/23 12/24/23 Unknown History clopidogrel 75 mg tablet (Plavix) 75 mg PO DAILY@79906/09/23 12/24/23 Unknown History estradiol 0.01% (0.1 mg/gram) 1 g vaginal MOWEFR 06/09/23 12/24/23 Unknown History vaginal cream (Estrace) levothyroxine 25 mcg tablet 25 mcg PO DAILY@59906/09/23 12/24/23 Unknown History magnesium oxide 400 mg (241.3 mg 400 mg PO DAILY@199906/09/23 12/24/23 Unknown History magnesium) tablet bisacodyl 10 mg rectal suppository 10 mg AR DAILY PRN Constipation 06/27/23 12/24/23 Unknown History acetaminophen 500 mg tablet 1,000 mg PO BID 12/24/23 12/24/23 Unknown History (Tylenol Extra Strength) atorvastatin 40 mg tablet 40 mg PO DAILY@199912/24/23 12/24/23 Unknown History magnesium hydroxide 400 mg/5 mL 30 ml PO DAILY PRN Constipation 12/24/23 12/24/23 Unknown History oral suspension (Milk of Magnesia) mirtazapine 15 mg tablet (Remeron) 7.5 mg PO DAILY@199912/24/23 12/24/23 Unknown History omeprazole 20 mg capsule,delayed 20 mg PO DAILY@62912/24/23 12/24/23 Unknown History release ondansetron HCl 4 mg tablet 4 mg PO Q6H PRN Nausea And Vomiting 12/24/23 12/24/23 Unknown History sodium phosphates 19 gram-7 118 ml AR DAILY PRN Constipation 12/24/23 12/24/23 Unknown History gram/118 mL enema (Fleet Enema) Physical Exam 2 Vital Signs and Narrative: Vital Signs: Last Vital Signs Temp 98.6 F 12/24/23 10:18 Pulse 72 12/24/23 14:17 Resp 16 12/24/23 14:17 BP 160/71 H 12/24/23 14:17 Pulse Ox 99 12/24/23 14:17 O2 Del Method Room Air 12/24/23 14:17 BMI result Body Mass Index 19.9 Constitutional - Awake and Alert, contracted, No apparent distress Eyes - PERRLA, EOMI Cardiovascular - S1S2, RRR, No edema Respiratory - Normal lung expansion, Normal respiratory effort, No respiratory distress, CTA bilaterally Gastrointestinal - NT / ND; +BS; No rebound or guarding Extremities - +calf tenderness bilaterally, no swelling Skin - Warm/Dry Neurological - Alert & oriented to self only, largely nonverbal Psychological - Appropriate affect Results Labs 12/24/23 11:12 12/24/23 11:12 Labs: Laboratory Results - last 24 hr 12/24/23 12/24/23 12/24/23 11:12 13:02 13:27 MCV 103.6 H MCH 33.9 H MCHC 32.7 RDW 15.4 Plt Count 239 D MPV 10.2 Immature Gran % (Auto) 0.7 H Neut % (Auto) 67.0 Lymph % (Auto) 23.0 [place] % (Auto) 6.0 Eos % (Auto) 2.7 Baso % (Auto) 0.6 Lymph # (Auto) 2.0 [place] # (Auto) 0.5 Eos # (Auto) 0.2 Baso # (Auto) 0.1 Abs Immat Gran (auto) 0.06 H Absolute Neuts (auto) 5.8 Absolute Nucleated RBC 0.000 Nucleated RBC % (auto) 0.0 Anion Gap 21 H Estim Creat Clear Calc 33.3 Estimated GFR > 60 Random Glucose 77 Lactic Acid Cancelled Calcium 9.3 Total Bilirubin 0.3 AST 30 ALT 13 Alkaline Phosphatase 88 Total Creatine Kinase 25 L Total Protein 7.1 Albumin 3.3 L Urine Color Dark Yellow Urine Appearance Clear Urine pH 5.5 Ur Specific [place] >= 1.030 H Urine Protein Trace Urine Glucose (UA) Negative Urine Ketones 40 Urine Blood Negative Urine Nitrite Positive H Ur Leukocyte Esterase Small (1+) H Urine RBC 0-2 Urine WBC 11-20 H Ur Squamous Epith Cells 3-5 Urine Bacteria 4+ Hyaline Casts 0-2 Assessment and Plan (1) UTI (urinary tract infection): Status: Acute (2) Delirium: Status: Acute (3) Dehydration: Status: Acute Plan 83-year-old female with history of unspecified dementia, hypothyroidism, coronary artery disease, peripheral vascular disease, hypertension admitted for further management of acute UTI with acute metabolic encephalopathy and weakness # acute UTI with acute metabolic encephalopathy -recently treated for E coli UTI sensitive to Keflex 3 weeks ago. Unfortunately, symptoms have not improved -head CT pending -no leukocytosis or sepsis -UA with 1+ leukocytes, positive nitrites, negative blood, positive urinary sediment, 4+ bacteria with elevated specific gravity -IV ceftriaxone (initiated 12/23) -follow cultures -monitor mentation # acute dehydration -likely secondary to above -continue IV LR, encourage p.o. intake # weakness -related to above -may benefit from PT on return to SNF #Bilateral calf ttp -venous duplex ordered # unspecified dementia -acute metabolic encephalopathy as above -per family, patient's baseline is conversive and oriented x3 # hypertension -continue metoprolol # CAD/PAD -continue DAPT, statin, bb # hypothyroidism -continue levothyroxine DVT prophylaxis-Lovenox DNR/DNI per HCP, dtr Precious, invoked given enpcephalopathy Patient requires inpatient stay at least 2 midnights for management of acute UTI with metabolic encephalopathy requiring IV antibiotics having failed outpatient oral antibiotics Quality Stroke Does the patient have a stroke diagnosis?: No VTE Prior VTE?: No VTE Risk Level:: Medical - moderate - high VTE Device Contraindication: Treatment Not Indicated VTE Drug Contraindication: N/A - Med Ordered
[2023-12-24 15:10] LABS: B Type Natriuretic Peptide 65 pg/mL (<100)
[2023-12-24] MEDS: Lactated Ringers 1,000 ML 80 ML IVCONT (15:39)
[2023-12-24] MEDS: Enoxaparin Sodium 40 MG/0.4 ML SYRINGE SUBCUT (16:17)
[2023-12-24 16:33] VITALS: BP 130/58; PULSE 71; RESP 14
[2023-12-24 20:53] VITALS: BP 111/64; PULSE 87; RESP 15; TEMP 36.4; O2SAT 96
[2023-12-24] MEDS: Atorvastatin Calcium 40 MG TABLET PO (20:56)
[2023-12-24] MEDS: Melatonin 3 MG TABLET 6 MG PO (20:56)
[2023-12-24] MEDS: Mirtazapine 7.5 MG TABLET PO (20:56)
[2023-12-24] MEDS: Acetaminophen 325 MG TABLET 650 MG PO (20:57)
[2023-12-24] MEDS: Metoprolol Tartrate 25 MG TABLET PO (20:57)
[2023-12-24] MEDS: Magnesium Oxide 400 MG TABLET PO (20:57)
--- NOTE | 2023-12-24 21:04 | PC.NURSE ---
pt medicated per jul, tolerated well crushed with pudding. no acute distress noted with swallowing.
[2023-12-25] VITALS (7 sets, daily range): BP systolic 113–175; BP diastolic 56–70; PULSE 67–99; RESP 14–18; TEMP 36.3–36.7; O2SAT 92–98; BMI 19.9
[2023-12-25] MEDS: Lactated Ringers 1,000 ML 80 ML IVCONT ×2 (04:16→15:02)
[2023-12-25] MEDS: Levothyroxine Sodium 25 MCG TABLET PO (06:02)
--- NOTE | 2023-12-25 06:03 | PC.NURSE ---
pt noted to have incontinent urine, pt changed and repositioned in bed. pt heels noted to be red, pillow placed to elevate heels.
[2023-12-25 08:10] LABS: MANUAL DIFF FLAG NO
[2023-12-25 08:12] LABS: Basophils Absolute Auto 0.1 X10*3/uL (0.0-0.2); Eosinophils Absolute Auto 0.3 X10*3/uL (0.0-0.4); Eosinophils Percent Auto 3.6 % (0-4); Hematocrit 34.3 % (37.0-47.0); Hemoglobin 11.3 g/dl (12.0-16.0); Imm Gran Abs Auto 0.04 X10*3/uL (0.00-0.03); Imm Gran Pct Auto 0.5 % (0.0-0.4); Lymphocytes Absolute Auto 2.3 X10*3/uL (1.2-4.9); Lymphocytes Percent Auto 31.5 % (20-40); Mean Corpuscular HGB Conc 32.9 g/dl (31.0-35.0); Mean Corpuscular Volume 103.3 fL (80.0-98.0); Mean Platelet Volume 10.1 fL (9.4-12.3); Monocytes Absolute Auto 0.5 X10*3/uL (0.1-1.2); Monocytes Percent Auto 7.3 % (2-11); Neutrophils Absolute Auto 4.1 x10*3/uL (2.0-8.3); Neutrophils Percent Auto 56.1 % (45-73); Platelet Count 209 X10*3/uL (160-400); Red Blood Count 3.32 X10*6/uL (4.20-5.50); Red Cell Distribution Width 15.2 % (11.0-16.0); White Blood Count 7.3 X10*3/uL (4.8-10.8)
[2023-12-25 08:23] LABS: Anion Gap 17 (12-20); Blood Urea Nitrogen 16 mg/dL (9-16); Calcium 8.4 mg/dL (8.4-10.2); Carbon Dioxide 22 mmol/L (22-29); Chloride 105 mmol/L (96-108); Creatinine Clr Calc Pharmacy 44.5; Estimated Glomerular Filt Rate > 60; Glucose Random 64 mg/dL (60-115); Sodium 140 mmol/L (135-145)
--- NOTE | 2023-12-25 09:07 | MHC.CM.PN ---
Patient has a diagnosis of Dementia; CM spoke with Daughter/HCP/Precious @ [phone] and addressed IMM with her (original will be mailed certified letter to Precious and a copy will be placed on the chart). Patient is a LTC Resident and [facility] bed hold @ [facility] and returning there is the goal. CM has initiated and will follow for dc planning.
--- NOTE | 2023-12-25 11:23 | PC.NURSE ---
Pt. refused meds. Meds. were crushed in pudding, pt. refusing putting and hitting this RN.
[2023-12-25] MEDS: cefTRIAXone sodium 1 GM in 0.9 % Sodium Chloride 50 ML IV (15:02)
[2023-12-25] MEDS: Enoxaparin Sodium 40 MG/0.4 ML SYRINGE SUBCUT (15:02)
--- NOTE | 2023-12-25 16:04 | MHC.CLN ---
NUTRITION NUTRITION CONSULT FOR POOR PO AND AT RISK FOR SKIN BREAKDOWN. DIET=2 GRAM SODIUM. VISITED WITH PATIENT AND DIL. PATIENT DISLIKES ENSURE SUPPLEMENT. REPLIED NOT TODAY WHEN OFFERED MAGIC CUP. SKIN WITH REDNESS TO HEELS. SIGNIFICANT WEIGHT LOSS X 6 MONTHS, -13.5%. FOLLOW FOR PO INTAKE, SKIN INTEGRITY AND WEIGHT. SEE CLINICAL NUTRITION ASSESSMENT 12/25/23.
--- NOTE | 2023-12-25 16:29 | HO.PM.IMPN ---
Subjective Subjective Date of Service: 12/25/23 Interval History: fu uti, encephalopathy, seems less confused Physical Exam Vital Signs: Vital Signs: Last Vital Signs Temp 97.8 F 12/25/23 06:06 Pulse 67 12/25/23 12:00 Resp 17 12/25/23 12:00 BP 137/60 12/25/23 12:00 Pulse Ox 95 12/25/23 12:00 O2 Del Method Room Air 12/25/23 12:00 BMI result Body Mass Index 19.9 Const: Other: General: AO X 2, no acute distress Resp: CTA bilateral CVS: S1,S2,RRR GI: +BS, NT, no distention Skin: No rash Neuro: motor grossly intact Psych: appropriate affect Objective Data Active Medications Acetaminophen (Acetaminophen 325 Mg Tablet) 650 mg PO BID [facility] Last Admin: 12/25/23 11:23 Dose: Not Given Documented By: REYES Non-Admin Reason: Patient Refused Acetaminophen (Acetaminophen 325 Mg Tablet) 650 mg PO DAILY PRN PRN Reason: Pain, Mild (Pain Scale 1-3) Aspirin (Aspirin Enteric Coated 81 Mg Tablet.Dr) 81 mg PO DAILY@0800 [facility] Last Admin: 12/25/23 11:22 Dose: Not Given Documented By: REYES Non-Admin Reason: Patient Refused Atorvastatin Calcium (Atorvastatin Calcium 40 Mg Tablet) 40 mg PO DAILY@1999 [facility] Last Admin: 12/24/23 20:56 Dose: 40 mg Documented By: CHARLIE Bisacodyl (Bisacodyl 10 Mg Supp.Rect) 10 mg [place] DAILY PRN PRN Reason: Constipation Calcium Carbonate (Calcium Carbonate 750 Mg Tab.Chew) 750 mg PO Q4H PRN PRN Reason: Heartburn Clopidogrel Bisulfate (Clopidogrel Bisulfate 75 Mg Tablet) 75 mg PO DAILY@0800 [facility] Last Admin: 12/25/23 11:22 Dose: Not Given Documented By: REYES Non-Admin Reason: Patient Refused Enoxaparin Sodium (Enoxaparin Sodium 40 Mg/0.4 Ml Syringe) 40 mg SUBCUT Q24H [facility] Last Admin: 12/25/23 15:02 Dose: 40 mg Documented By: ALFREDITO Lactated Ringer's (Lr) 1,000 mls @ 80 mls/hr IVCONT .[id number] [facility] Last Admin: 12/25/23 15:02 Dose: 80 mls/hr Documented By: ALFREDITO Ceftriaxone Sodium 1 gm/ (Sodium Chloride) 50 mls @ 100 mls/hr IV Q24H [facility] Last Infusion: 12/25/23 15:37 Dose: Infused Documented By: ALFREDITO Levothyroxine Sodium (Levothyroxine Sodium 25 Mcg Tablet) 25 mcg PO DAILY@06 [facility] Last Admin: 12/25/23 06:02 Dose: 25 mcg Documented By: CHARLIE Magnesium Hydroxide (Milk Of Magnesia 30 Ml Oral.Susp) 30 ml PO DAILY PRN PRN Reason: Constipation Magnesium Hydroxide (Milk Of Magnesia 30 Ml Oral.Susp) 30 ml PO DAILY PRN PRN Reason: Constipation Magnesium Oxide (Magnesium Oxide 400 Mg Tablet) 400 mg PO DAILY@1999 [facility] Last Admin: 12/24/23 20:57 Dose: 400 mg Documented By: CHARLIE Melatonin (Melatonin 3 Mg Tablet) 6 mg PO BEDTIME [facility] Last Admin: 12/24/23 20:56 Dose: 6 mg Documented By: CHARLIE Metoprolol Tartrate (Metoprolol Tartrate 25 Mg Tablet) 25 mg PO BEDTIME@1999 [facility]; Protocol Last Admin: 12/24/23 20:57 Dose: 25 mg Documented By: CHARLIE Metoprolol Tartrate (Metoprolol Tartrate 50 Mg Tablet) 50 mg PO DAILY@799 [facility]; Protocol Last Admin: 12/25/23 11:22 Dose: Not Given Documented By: REYES Non-Admin Reason: Patient Refused Mirtazapine (Mirtazapine 7.5 Mg Tablet) 7.5 mg PO DAILY@1999 [facility] Last Admin: 12/24/23 20:56 Dose: 7.5 mg Documented By: CHARLIE Nitroglycerin (Nitroglycerin 0.4 Mg Tab.Subl) 0.4 mg SUBLINGUAL Q5M PRN PRN Reason: chest pain Non-Formulary Medication (Estradiol [Estrace]) 1 gm VAGINAL MOWEFR [facility] Omeprazole (Omeprazole 20 Mg Capsule.Dr) 20 mg PO DAILY@629 [facility] Last Admin: 12/25/23 06:03 Dose: Not Given Documented By: CHARLIE Non-Admin Reason: Patient Refused Ondansetron HCl (Ondansetron Odt 4 Mg Tab.Rapdis) 4 mg TRANSLINGU Q6H PRN PRN Reason: Nausea And Vomiting Sodium Biphosphate/Sodium Phosphate (Sodium Phosphate,[place]-Dibasic 133 Ml Enema) 118 ml [place] DAILY PRN PRN Reason: Constipation Sodium Chloride (0.9 % Sodium Chloride Flush 3 Ml Syringe) 3 ml IVFLUSH QSHIFT [facility] Last Admin: 12/25/23 15:18 Dose: Not Given Documented By: ALFREDITO Non-Admin Reason: IV Running Labs 12/25/23 08:05 12/25/23 08:04 Labs: Laboratory Results - last 24 hr 12/25/23 12/25/23 08:04 08:05 MCV 103.3 H MCH 34.0 H MCHC 32.9 RDW 15.2 Plt Count 209 MPV 10.1 Immature Gran % (Auto) 0.5 H Neut % (Auto) 56.1 Lymph % (Auto) 31.5 [place] % (Auto) 7.3 Eos % (Auto) 3.6 Baso % (Auto) 1.0 Lymph # (Auto) 2.3 [place] # (Auto) 0.5 Eos # (Auto) 0.3 Baso # (Auto) 0.1 Abs Immat Gran (auto) 0.04 H Absolute Neuts (auto) 4.1 Absolute Nucleated RBC 0.000 Nucleated RBC % (auto) 0.0 Anion Gap 17 Estim Creat Clear Calc 44.5 Estimated GFR > 60 Random Glucose 64 Calcium 8.4 D Microbiology Microbiology Results: Microbiology 12/24/23 13:02 Blood Culture - Preliminary Blood - Venous No growth after 24 hours. 12/24/23 13:02 Blood Culture - Preliminary Blood - Venous No growth after 24 hours. 12/24/23 Unknown Urine Culture - Preliminary Urine Catheterized - Straight Catheter Culture in progress. Assessment and Plan (1) UTI (urinary tract infection): Status: Acute (2) Dehydration: Status: Acute (3) Delirium: Status: Acute Plan 83-year-old female with history of unspecified dementia, hypothyroidism, coronary artery disease, peripheral vascular disease, hypertension admitted for further management of acute UTI with acute metabolic encephalopathy and weakness # acute UTI with acute metabolic encephalopathy--better -recently treated for E coli UTI sensitive to Keflex 3 weeks ago. -head CT no acute findng -no leukocytosis or sepsis -UA with 1+ leukocytes, positive nitrites, negative blood, positive urinary sediment, 4+ bacteria with elevated specific gravity -IV ceftriaxone (initiated 12/23) -follow cultures -monitor mentation # acute dehydration -likely secondary to above -continue IV LR, encourage p.o. intake # weakness -related to above -may benefit from PT on return to SNF #Bilateral calf ttp -venous duplex negative # unspecified dementia -acute metabolic encephalopathy as above -per family, patient's baseline is conversive and oriented x3 # hypertension -continue metoprolol # CAD/PAD -continue DAPT, statin, bb # hypothyroidism -continue levothyroxine DVT prophylaxis-Lovenox DNR/DNI per HCP, dtr Precious, invoked given enpcephalopathy need for inpt: IV Abx for UTI causing metabolic encephalopathy Quality Stroke Does the patient have a stroke diagnosis?: No VTE Prior VTE?: No VTE Risk Level:: Medical - moderate - high VTE Device Contraindication: Treatment Not Indicated VTE Drug Contraindication: N/A - Med Ordered
[2023-12-25] MEDS: Melatonin 3 MG TABLET 6 MG PO (20:58)
[2023-12-25] MEDS: Magnesium Oxide 400 MG TABLET PO (20:59)
[2023-12-25] MEDS: Mirtazapine 7.5 MG TABLET PO (20:59)
[2023-12-25] MEDS: Metoprolol Tartrate 25 MG TABLET PO (20:59)
[2023-12-25] MEDS: Atorvastatin Calcium 40 MG TABLET PO (20:59)
[2023-12-25] MEDS: Acetaminophen 325 MG TABLET 650 MG PO (21:06)
[2023-12-26] MEDS: Lactated Ringers 1,000 ML 80 ML IVCONT (03:44)
[2023-12-26 04:00] VITALS: BP 138/68; PULSE 74; RESP 18; TEMP 36.1; O2SAT 97
[2023-12-26] MEDS: Levothyroxine Sodium 25 MCG TABLET PO (05:34)
[2023-12-26] MEDS: Omeprazole 20 MG CAPSULE.DR PO (05:34)
[2023-12-26 08:00] VITALS: BP 136/81; PULSE 73; RESP 18; TEMP 36.4; O2SAT 98
[2023-12-26] MEDS: Metoprolol Tartrate 50 MG TABLET PO (08:59)
[2023-12-26] MEDS: Acetaminophen 325 MG TABLET 650 MG PO ×2 (09:00→19:24)
[2023-12-26] MEDS: Aspirin Enteric Coated 81 MG TABLET.DR PO (09:00)
[2023-12-26] MEDS: Clopidogrel Bisulfate 75 MG TABLET PO (09:00)
[2023-12-26] MEDS: 0.9 % Sodium Chloride Flush 3 ML SYRINGE IVFLUSH ×3 (09:01→19:44)
--- NOTE | 2023-12-26 10:00 | P.PNIM_ITS ---
Subjective Subjective Date of Service: 12/26/23 Interval History: fu uti, encephalopathy, seems less confused Physical Exam 2 Vital Signs: Vital Signs: Last Vital Signs Temp 97.5 F 12/26/23 08:00 Pulse 73 12/26/23 08:00 Resp 18 12/26/23 08:00 BP 136/81 12/26/23 08:00 Pulse Ox 98 12/26/23 08:00 O2 Del Method Room Air 12/26/23 08:00 BMI result Body Mass Index 19.9 Const: Other: General: AO X 2, no acute distress Resp: CTA bilateral CVS: S1,S2,RRR GI: +BS, NT, no distention Skin: No rash Neuro: motor grossly intact Psych: appropriate affect Objective Data Active Medications Acetaminophen (Acetaminophen 325 Mg Tablet) 650 mg PO BID [facility] Last Admin: 12/26/23 09:00 Dose: 650 mg Documented By: ABELARDO Acetaminophen (Acetaminophen 325 Mg Tablet) 650 mg PO DAILY PRN PRN Reason: Pain, Mild (Pain Scale 1-3) Aspirin (Aspirin Enteric Coated 81 Mg Tablet.Dr) 81 mg PO DAILY@08 [facility] Last Admin: 12/26/23 09:00 Dose: 81 mg Documented By: ABELARDO Atorvastatin Calcium (Atorvastatin Calcium 40 Mg Tablet) 40 mg PO DAILY@1999 [facility] Last Admin: 12/25/23 20:59 Dose: 40 mg Documented By: ERICK Bisacodyl (Bisacodyl 10 Mg Supp.Rect) 10 mg [place] DAILY PRN PRN Reason: Constipation Calcium Carbonate (Calcium Carbonate 750 Mg Tab.Chew) 750 mg PO Q4H PRN PRN Reason: Heartburn Clopidogrel Bisulfate (Clopidogrel Bisulfate 75 Mg Tablet) 75 mg PO DAILY@0800 [facility] Last Admin: 12/26/23 09:00 Dose: 75 mg Documented By: ABELARDO Enoxaparin Sodium (Enoxaparin Sodium 40 Mg/0.4 Ml Syringe) 40 mg SUBCUT Q24H [facility] Last Admin: 12/25/23 15:02 Dose: 40 mg Documented By: ALFREDITO Lactated Ringer's (Lr) 1,000 mls @ 80 mls/hr IVCONT .[id number] [facility] Last Admin: 12/26/23 03:44 Dose: 80 mls/hr Documented By: ERICK Ceftriaxone Sodium 1 gm/ (Sodium Chloride) 50 mls @ 100 mls/hr IV Q24H [facility] Last Infusion: 12/25/23 15:37 Dose: Infused Documented By: ALFREDITO Levothyroxine Sodium (Levothyroxine Sodium 25 Mcg Tablet) 25 mcg PO DAILY@06 [facility] Last Admin: 12/26/23 05:34 Dose: 25 mcg Documented By: ERICK Magnesium Hydroxide (Milk Of Magnesia 30 Ml Oral.Susp) 30 ml PO DAILY PRN PRN Reason: Constipation Magnesium Hydroxide (Milk Of Magnesia 30 Ml Oral.Susp) 30 ml PO DAILY PRN PRN Reason: Constipation Magnesium Oxide (Magnesium Oxide 400 Mg Tablet) 400 mg PO DAILY@1999 [facility] Last Admin: 12/25/23 20:59 Dose: 400 mg Documented By: ERICK Melatonin (Melatonin 3 Mg Tablet) 6 mg PO BEDTIME [facility] Last Admin: 12/25/23 20:58 Dose: 6 mg Documented By: ERICK Metoprolol Tartrate (Metoprolol Tartrate 25 Mg Tablet) 25 mg PO BEDTIME@1999 [facility]; Protocol Last Admin: 12/25/23 20:59 Dose: 25 mg Documented By: ERICK Metoprolol Tartrate (Metoprolol Tartrate 50 Mg Tablet) 50 mg PO DAILY@799 [facility]; Protocol Last Admin: 12/26/23 08:59 Dose: 50 mg Documented By: ABELARDO Mirtazapine (Mirtazapine 7.5 Mg Tablet) 7.5 mg PO DAILY@1999 [facility] Last Admin: 12/25/23 20:59 Dose: 7.5 mg Documented By: ERICK Nitroglycerin (Nitroglycerin 0.4 Mg Tab.Subl) 0.4 mg SUBLINGUAL Q5M PRN PRN Reason: chest pain Non-Formulary Medication (Estradiol [Estrace]) 1 gm VAGINAL MOWEFR [facility] Omeprazole (Omeprazole 20 Mg Capsule.Dr) 20 mg PO DAILY@629 [facility] Last Admin: 12/26/23 05:34 Dose: 20 mg Documented By: ERICK Ondansetron HCl (Ondansetron Odt 4 Mg Tab.Rapdis) 4 mg TRANSLINGU Q6H PRN PRN Reason: Nausea And Vomiting Sodium Biphosphate/Sodium Phosphate (Sodium Phosphate,[place]-Dibasic 133 Ml Enema) 118 ml [place] DAILY PRN PRN Reason: Constipation Sodium Chloride (0.9 % Sodium Chloride Flush 3 Ml Syringe) 3 ml IVFLUSH QSHIFT [facility] Last Admin: 12/26/23 09:01 Dose: 3 ml Documented By: ABELARDO Labs 12/25/23 08:05 12/25/23 08:04 Microbiology Microbiology Results: Microbiology 12/24/23 13:02 Blood Culture - Preliminary Blood - Venous No growth after 24 hours. 12/24/23 13:02 Blood Culture - Preliminary Blood - Venous No growth after 24 hours. 12/24/23 Unknown Urine Culture - Preliminary Urine Catheterized - Straight Catheter Culture in progress. Assessment and Plan (1) UTI (urinary tract infection): Status: Acute (2) Dehydration: Status: Acute (3) Delirium: Status: Acute Plan 83-year-old female with history of unspecified dementia, hypothyroidism, coronary artery disease, peripheral vascular disease, hypertension admitted for further management of acute UTI with acute metabolic encephalopathy and weakness # acute UTI with acute metabolic encephalopathy--better -recently treated for E coli UTI sensitive to Keflex 3 weeks ago. -head CT no acute findng -no leukocytosis or sepsis -UA with 1+ leukocytes, positive nitrites, negative blood, positive urinary sediment, 4+ bacteria with elevated specific gravity -IV ceftriaxone (initiated 12/23) -follow cultures -monitor mentation # acute dehydration -likely secondary to above -continue IV LR, encourage p.o. intake # weakness -related to above -may benefit from PT on return to SNF #Bilateral calf ttp -venous duplex negative # unspecified dementia -acute metabolic encephalopathy as above -per family, patient's baseline is conversive and oriented x3 # hypertension -continue metoprolol # CAD/PAD -continue DAPT, statin, bb # hypothyroidism -continue levothyroxine DVT prophylaxis-Lovenox DNR/DNI per HCP, dtr Precious, invoked given enpcephalopathy need for inpt: IV Abx for UTI causing metabolic encephalopathy Quality Stroke Does the patient have a stroke diagnosis?: No VTE Prior VTE?: No VTE Risk Level:: Medical - moderate - high VTE Device Contraindication: Treatment Not Indicated VTE Drug Contraindication: N/A - Med Ordered
--- NOTE | 2023-12-26 10:59 | P.DS_ITS ---
DS: Providers Provider Date of Service: 12/26/23 Date of admission: 12/24/23 14:52 Primary care physician: Med Interiano MD DS: Diagnosis Discharge Diagnosis (1) UTI (urinary tract infection): Status: Acute (2) Dehydration: Status: Acute (3) Delirium: Status: Acute DS: Summary Hospital Course Hospital Course: Admission HPI Chief Complaint: confusion, weakness 83-year-old female with history of unspecified dementia, hypothyroidism, coronary artery disease, peripheral vascular disease, hypertension who presents to the ED earlier today from SNF accompanied by her daughter, Precious who is healthcare proxy, and [id number], [place], due to confusion, weakness, and decreased p.o. intake ongoing for the last 3-4 weeks. She states she was diagnosed with a UTI at [facility] 3 weeks ago and was treated with keflex uc at that time showed pansensitive E coli. Urine culture was repeated on 12/19 but remains pending. Her daughter reports symptoms have not improved. She is confused from baseline. Today oriented to self only, baseline conversive oriented x3. She has not been eating or drinking much and has been very weak not getting out of bed. Per EMS patient was hypoxic to 86% but since arrival has not demonstrated any hypoxia. Vitals have been stable. No leukocytosis. Renal function baseline, lytes wnl except co2 19. UA with 1+ leuks, +nitrites, +urinary sediment and 4+ bacteria. SG also elevated. Head CT pending. CXR pending. In the ED, given 500ml IV NS and 1g IV ctx. Hospital course: # acute UTI with acute metabolic encephalopathy, she was recently treated for E coli UTI sensitive to Keflex 3 weeks ago, she is now treated with IV ceftriaxone for 3days and will be transition to oral Ceftin for 5 more days, urine culture is notable for E. coli and Proteus as below She will be transitioned to Cefuroxime 250 mg twice daily for 5 more days # acute dehydration -likely secondary to above -treated with IVF, she is eating and drinking, her recent bmp was normal # weakness due to abvove, should participate in PT at SNF #Bilateral calf pain -venous duplex negative # unspecified dementia -no behavior issues # hypertension -continue metoprolol # CAD/PAD -continue dual antiplatlet therapy (DAPT), statin, bb # hypothyroidism -continue levothyroxine dispo: back to SNF Time Attestation Discharge Coordination Time (in mins): 40 Quality: Safe Use of Opioids Does Pt have an Active Cancer Diagnosis on the Problem List?: No Quality: Stroke Does the patient have a stroke diagnosis?: No Physical Exam 2 Vital Signs: Vital Signs: Last Vital Signs Temp 97.5 F 12/26/23 08:00 Pulse 73 12/26/23 08:00 Resp 18 12/26/23 08:00 BP 136/81 12/26/23 08:00 Pulse Ox 98 12/26/23 08:00 O2 Del Method Room Air 12/26/23 08:00 BMI result Body Mass Index 19.9 DS: Data Data Completed and Pending Labs on day of discharge: Preliminary micro results at discharge 12/24/23 13:02 Blood Culture - Preliminary Blood - Venous No growth after 24 hours. 12/24/23 13:02 Blood Culture - Preliminary Blood - Venous No growth after 24 hours. 12/24/23 Unknown Urine Culture - Preliminary Urine Catheterized - Straight Catheter Culture in progress. Discharge Plan Discharge Anticipated Discharge Date/Time: 12/27/23 08:46 Patient Disposition: Xfer SNF Discharge Diagnosis: metabolic encephalopathy due to UTI Referrals: Med Interiano MD [Primary Care Provider] - 1 Week Discharge Medications: New cefuroxime axetil 250 mg tablet 250 mg PO BID Qty: 10 0RF Continued ondansetron HCl 4 mg Tablet 4 mg PO Q6H PRN (Reason: Nausea And Vomiting) acetaminophen [Tylenol Extra Strength] 500 mg Tablet 1,000 mg PO BID omeprazole 20 mg capsule,delayed release(DR/EC) 20 mg PO DAILY@0630 mirtazapine [Remeron] 15 mg Tablet 7.5 mg PO DAILY@1999 magnesium hydroxide [Milk of Magnesia] 400 mg/5 mL Suspension 30 ml PO DAILY PRN (Reason: Constipation) Rx Instructions: For no BM in 3 days Fleet Enema 19-7 gram/118 mL Enema 118 ml [place] DAILY PRN (Reason: Constipation) atorvastatin 40 mg tablet 40 mg PO DAILY@1999 acetaminophen 500 mg Tablet 1,000 mg PO DAILY PRN (Reason: Pain) estradiol [Estrace] 0.01 % (0.1 mg/gram) Cream 1 g VAGINAL MOWEFR Rx Instructions: at bedtime levothyroxine 25 mcg tablet 25 mcg PO DAILY@0600 magnesium oxide 400 mg (241.3 mg magnesium) Tablet 400 mg PO DAILY@2000 [facility] 10 billion cell -200 mg Capsule 1 cap PO DAILY@0800 clopidogrel [Plavix] 75 mg tablet 75 mg PO DAILY@0800 nitroglycerin 0.4 mg tablet, sublingual 0.4 mg sublingual Q5M PRN (Reason: chest pain) Qty: 30 0RF Rx Instructions: do not exceed three doses per episode and call 911 if chest pain persists melatonin 5 mg capsule 5 mg PO DAILY@1800 metoprolol tartrate 25 mg tablet 25 mg PO BEDTIME@2000 aspirin [Adult Aspirin Regimen] 81 mg tablet,delayed release (DR/EC) 81 mg PO DAILY@0800 metoprolol tartrate 50 mg tablet 50 mg PO DAILY@0800 bisacodyl 10 mg suppository 10 mg DC DAILY PRN (Reason: Constipation) Discharge Orders: Discharge Order (Routine); Ordered 12/27/23 Ordered By: Jhonatan Sebastian Diet: Advance to usual diet Activity on Discharge: As tolerated Stand Alone Forms: Patient Portal Discharge page Print Language: Japanese Care Plan Goals: recovery from UTI and encephalopathy Health Concerns: metabolic encephalopathy UTI Plan of Treatment: take cefuroxime as directed and follow-up with your primary care doctor within a week, Assessment: see above Discharge Date/Time: 12/27/23 15:16
[2023-12-26] MEDS: cefTRIAXone sodium 1 GM in 0.9 % Sodium Chloride 50 ML IV (13:45)
[2023-12-26] MEDS: Enoxaparin Sodium 40 MG/0.4 ML SYRINGE SUBCUT (15:21)
[2023-12-26 15:42] VITALS: BP 139/64; PULSE 73; RESP 18; TEMP 36.1; O2SAT 96
[2023-12-26 19:10] VITALS: BP 142/81; PULSE 83; RESP 16; TEMP 36.2; O2SAT 95
[2023-12-26] MEDS: Metoprolol Tartrate 25 MG TABLET PO (19:24)
[2023-12-26] MEDS: Melatonin 3 MG TABLET 6 MG PO (19:24)
[2023-12-26] MEDS: Mirtazapine 7.5 MG TABLET PO (19:25)
[2023-12-26] MEDS: Magnesium Oxide 400 MG TABLET PO (19:25)
[2023-12-26] MEDS: Atorvastatin Calcium 40 MG TABLET PO (19:25)
[2023-12-27 03:00] VITALS: BP 141/88; PULSE 100; RESP 16; TEMP 36.1; O2SAT 93
[2023-12-27] MEDS: Levothyroxine Sodium 25 MCG TABLET PO (05:59)
[2023-12-27] MEDS: Omeprazole 20 MG CAPSULE.DR PO (05:59)
[2023-12-27 08:00] VITALS: BP 118/74; PULSE 88; RESP 16; TEMP 36.1; O2SAT 96
[2023-12-27] MEDS: Acetaminophen 325 MG TABLET 650 MG PO (09:19)
[2023-12-27] MEDS: Clopidogrel Bisulfate 75 MG TABLET PO (09:19)
[2023-12-27] MEDS: Metoprolol Tartrate 50 MG TABLET PO (09:19)
[2023-12-27] MEDS: Aspirin Enteric Coated 81 MG TABLET.DR PO (09:19)
[2023-12-27] MEDS: 0.9 % Sodium Chloride Flush 3 ML SYRINGE IVFLUSH (09:21)
--- NOTE | 2023-12-27 10:31 | MHC.CM.PN ---
Per MD rounds patient medically cleared for dc back to LTC @ [facility]. BLS transport scheduled for 2pm. , RN and daughter/HCP aware.
--- NOTE | 2023-12-27 11:06 | MHC.CLN ---
F/U DIET=2 GRAM SODIUM, CHOPPED. SKIN WITH REDNESS TO BUTTOCKS. PO INTAKE VARIABLE, 25-75%. CONTINUE CURRENT DIET. DISLIKES SUPPLEMENTS. FOLLOW FOR PO INTAKE, SKIN INTEGRITY AND WEIGHT.
== END 2023-12-27 15:16 | disposition skilled nursing facility (03) | DRG 689 ==
LOC: HO.ED 11:22 → HO.EDOVER 14:57 → HO.S3 12-25 13:09
PROVIDERS: Internal Medicine; Physician Assistant; Admitting Provider Physician Assistant; Emergency Provider Emergency Medicine; PCP Family Medicine; Visit Provider Internal Medicine
DX: N39.0 Urinary tract infection, site not specified (principal); G93.41 Metabolic encephalopathy; M31.19 Other thrombotic microangiopathy; F05 Delirium due to known physiological condition; Q60.0 Renal agenesis, unilateral; E03.9 Hypothyroidism, unspecified; I73.9 Peripheral vascular disease, unspecified; B96.20 Unspecified Escherichia coli [E. coli] as the cause of diseases classified elsewhere; B96.4 Proteus (mirabilis) (morganii) as the cause of diseases classified elsewhere; Z66 Do not resuscitate; F03.90 Unspecified dementia, unspecified severity, without behavioral disturbance, psychotic disturbance, mood disturbance, and anxiety; I25.10 Atherosclerotic heart disease of native coronary artery without angina pectoris; E86.0 Dehydration; Z87.440 Personal history of urinary (tract) infections; Z79.02 Long term (current) use of antithrombotics/antiplatelets; Z79.82 Long term (current) use of aspirin; Z79.890 Hormone replacement therapy; Z79.899 Other long term (current) drug therapy
CPT/HCPCS: 36415; 70450; 71045; 80048; 80053; 81001; 82550; 83880; 85025; 87040; 87086; 87088; 87186; 93005; 93970; 99285; J0696; J1650; J7120

== ENCOUNTER → 2023-12-24 14:52 | Outpatient (BNV) | payer MEDICARE, MEDICAID, SELFPAY | PROVIDERS: Admitting Provider Physician Assistant; Emergency Provider Emergency Medicine; PCP Family Medicine; Visit Provider Physician Assistant | DX: N39.0 Urinary tract infection, site not specified (principal); E86.0 Dehydration; R41.0 Disorientation, unspecified | CPT/HCPCS: 99222; 99232; 99239 ==